=== PATIENT | male | born 1975 | race Hispanic/Latino ===

== ENCOUNTER 2020-10-19 08:47 | Inpatient (IN) | payer MEDICAID, OTHER ==
[~2020-10-19] VITALS: Ht 167.6 cm; Wt 120.0 kg
[2020-10-19] VITALS (7 sets, daily range): BP systolic 137–190; BP diastolic 73–98
[2020-10-19 09:33] LABS: BASOPHILS % (AUTO) 0.6 % (0.0-5.0); EOSINOPHILS % (AUTO) 2.1 % (0.0-8.0); HEMATOCRIT 45.7 % (42-54); LYMPHOCYTES % (AUTO) 19.4 % (21.0-51.0); MEAN CORPUSCULAR HEMOGLOBIN 28.8 pg (27.0-33.0); MEAN CORPUSCULAR HGB CONC 35.4 g/dL (32.0-36.0); MEAN CORPUSCULAR VOLUME 81.2 fL (79-99); NEUTROPHILS % (AUTO) 71.6 % (40.0-77.0); PLATELET COUNT (AUTO) 199 K/uL (130-400); RED BLOOD CELL COUNT(AUTO) 5.63 MIL/uL (4.50-6.20); RED CELL DISTRIBUTION WIDTH 13.3 % (11.0-15.5); WHITE BLOOD COUNT (AUTO) 12.3 K/uL (4.8-10.8)
[2020-10-19 09:43] LABS: INR 0.99 (0.85-1.15); PROTHROMBIN TIME 10.8 SEC (9.6-11.6)
[2020-10-19 09:47] LABS: ALBUMIN 2.9 g/dL (3.5-5.0); BILIRUBIN,TOTAL 1.4 mg/dL (0.2-1.0); CREATININE 0.9 mg/dL (0.5-1.5); TOTAL PROTEIN, SERUM 6.9 g/dL (6.0-8.3)
[2020-10-19 09:48] LABS: B-TYPE NATRIURETIC PEPTIDE 118 pg/mL (0-100)
[2020-10-19 11:44] LABS: APPEARANCE,URINE Clear (CLEAR); BILIRUBIN,URINE Negative (NEGATIVE); COLOR,URINE Yellow (YELLOW); GLUCOSE, URINE (UA) >=1000 mg/dL (NEGATIVE); KETONES,URINE Negative (NEGATIVE); LEUKOCYTE ESTERASE ,URINE Negative (NEGATIVE); NITRATE,URINE Negative (NEGATIVE); OCCULT BLOOD,URINE Negative (NEGATIVE); PROTEIN,URINE >=1000 mg/dL (NEGATIVE)
[2020-10-19] MEDS ORDERED: SOLU-MEDROL 125MG VIAL IVP SCH (12:00)
[2020-10-19] MEDS ORDERED: INSULIN HUMULIN R 100 UNIT/ML 3ML IV SCH (12:00)
[2020-10-19] MEDS ORDERED: 0.9%NACL 1000ML 1,000 ML IV SCH (12:00)
[2020-10-19 12:02] LABS: BACTERIA,URINE Rare /HPF (None Seen); RBC,URINE 0-1 /HPF (0-1); SQUAMOUS EPITHELIAL CELL,UR Rare /HPF (0-2)
[2020-10-19] MEDS ORDERED: ACETAMINOPHEN 325 MG TAB PO PRN (13:00)
[2020-10-19] MEDS ORDERED: LACTULOSE 20 GM/30 ML UDCUP PO PRN (13:00)
[2020-10-19] MEDS: 0.9%NACL 1000ML 1,000 ML IV SCH ×2 (13:40→17:33)
[2020-10-19 13:42] LABS: HDL CHOLESTEROL 45 mg/dL (29-71); LDL DIRECT 59 mg/dL (0-99); TRIGLYCERIDES 97 mg/dL (30-200)
[2020-10-19 13:53] LABS: CHOLESTEROL 112 mg/dL (<200)
[2020-10-19 14:12] LABS: HEMOGLOBIN A1C 9.9 % (4.0-6.0)
[2020-10-19] MEDS ORDERED: INSULIN HUMULIN R 100 UNIT/ML 3ML SQ SCH (16:30)
[2020-10-19] MEDS: INSULIN HUMULIN R 100 UNIT/ML 3ML SQ SCH (17:00)
[2020-10-19] MEDS ORDERED: INSULIN GLARGINE 100 UNITS/ML 10 ML VIAL SQ SCH (21:00)
[2020-10-19] MEDS: FAMOTIDINE 20MG TAB PO SCH (22:07)
[2020-10-20] VITALS (9 sets, daily range): BP systolic 147–178; BP diastolic 65–98
[2020-10-20] MEDS ORDERED: INSULIN HUMULIN R 100 UNIT/ML 3ML SQ ONE (02:30)
[2020-10-20] MEDS ORDERED: LABETALOL 20MG SYG IV ONE (06:05)
[2020-10-20] MEDS ORDERED: LABETALOL 20MG SYG IV SCH (06:35)
[2020-10-20] MEDS: INSULIN HUMULIN R 100 UNIT/ML 3ML SQ SCH ×6 (08:45→21:01)
[2020-10-20] MEDS: ASPIRIN 81 MG EC TAB PO SCH (08:46)
[2020-10-20] MEDS: LISINOPRIL 10 MG TABLET PO SCH (08:46)
[2020-10-20] MEDS: 0.9%NACL 1000ML 1,000 ML IV SCH (08:46)
[2020-10-20] MEDS ORDERED: LISI40TA9 PO (09:45)
[2020-10-20] MEDS ORDERED: CARV6.25 PO (09:45)
[2020-10-20] MEDS ORDERED: ATOR40TA69 PO (09:45)
[2020-10-20] MEDS ORDERED: FURO20TA6 PO (09:45)
[2020-10-20] MEDS ORDERED: AMLO10TA4 PO (09:45)
[2020-10-20] MEDS ORDERED: HYDR-4154 PO (09:45)
[2020-10-20] MEDS ORDERED: METF-446 PO (09:45)
[2020-10-20] MEDS ORDERED: CLON0.2T PO (09:45)
[2020-10-20] MEDS: FAMOTIDINE 20MG TAB PO SCH ×2 (10:52→21:03)
[2020-10-20] MEDS ORDERED: GADOTERATE MEGLUMINE 10 MMOL/20 ML VIAL IV ONE (10:54)
[2020-10-20] MEDS ORDERED: LABETALOL 20MG SYG IV PRN (15:00)
[2020-10-20] MEDS ORDERED: CLONIDINE HCL 0.2 MG TABLET PO ONE (15:00)
[2020-10-20] MEDS ORDERED: INSULIN HUMULIN R 100 UNIT/ML 3ML SQ SCH (17:00)
[2020-10-20] MEDS ORDERED: INSU10VI3 SQ (17:01)
[2020-10-20] MEDS: HYDRALAZINE 25MG TABLET PO SCH (20:59)
[2020-10-20] MEDS: AMLODIPINE 5 MG TAB PO SCH (21:00)
[2020-10-20] MEDS: CLONIDINE HCL 0.2 MG TABLET PO SCH (21:00)
[2020-10-20] MEDS: CARVEDILOL 6.25 MG TABLET PO SCH (21:00)
[2020-10-20] MEDS: FUROSEMIDE 20 MG TABLET PO SCH (21:00)
[2020-10-20] MEDS: VALACYCLOVIR HCL 500 MG TABLET PO SCH (21:00)
[2020-10-20] MEDS: INSULIN GLARGINE 100 UNITS/ML 10 ML VIAL SQ SCH (21:01)
[2020-10-21 03:55] VITALS: BP 125/67
[2020-10-21] MEDS: INSULIN HUMULIN R 100 UNIT/ML 3ML SQ SCH ×7 (06:22→20:40)
[2020-10-21 07:30] VITALS: BP 159/93
[2020-10-21] MEDS: LISINOPRIL 40 MG TABLET PO SCH (09:23)
[2020-10-21] MEDS: PREDNISONE 20 MG TABLET PO SCH (09:23)
[2020-10-21] MEDS: LISINOPRIL 10 MG TABLET PO SCH (09:23)
[2020-10-21] MEDS: ASPIRIN 81 MG EC TAB PO SCH (09:27)
[2020-10-21] MEDS: FAMOTIDINE 20MG TAB PO SCH ×2 (09:27→20:29)
[2020-10-21] MEDS: HYDRALAZINE 25MG TABLET PO SCH ×3 (09:28→20:30)
[2020-10-21] MEDS: ATORVASTATIN 40 MG TABLET PO SCH (09:29)
[2020-10-21] MEDS: CARVEDILOL 6.25 MG TABLET PO SCH ×2 (09:29→20:30)
[2020-10-21] MEDS: CLONIDINE HCL 0.2 MG TABLET PO SCH ×2 (09:30→20:30)
[2020-10-21] MEDS: FUROSEMIDE 20 MG TABLET PO SCH ×2 (09:30→20:29)
[2020-10-21] MEDS: VALACYCLOVIR HCL 500 MG TABLET PO SCH ×3 (09:31→20:32)
[2020-10-21 11:00] VITALS: BP 166/96
[2020-10-21 16:00] VITALS: BP 172/96
[2020-10-21 20:00] VITALS: BP 181/90
[2020-10-21] MEDS: AMLODIPINE 5 MG TAB PO SCH (20:29)
[2020-10-21] MEDS: INSULIN GLARGINE 100 UNITS/ML 10 ML VIAL SQ SCH (20:41)
[2020-10-21 22:00] VITALS: BP 163/85
[2020-10-22 01:04] VITALS: BP 153/79
[2020-10-22 04:16] VITALS: BP 160/69
[2020-10-22] MEDS: INSULIN HUMULIN R 100 UNIT/ML 3ML SQ SCH ×4 (06:33→12:06)
[2020-10-22 06:38] LABS: BASOPHILS % (AUTO) 0.5 % (0.0-5.0); EOSINOPHILS % (AUTO) 0.4 % (0.0-8.0); HEMATOCRIT 41.7 % (42-54); LYMPHOCYTES % (AUTO) 20.2 % (21.0-51.0); MEAN CORPUSCULAR HGB CONC 35.5 g/dL (32.0-36.0); MEAN CORPUSCULAR VOLUME 81.6 fL (79-99); MONOCYTES % (AUTO) 6.3 % (3.0-13.0); PLATELET COUNT (AUTO) 205 K/uL (130-400); RED BLOOD CELL COUNT(AUTO) 5.11 MIL/uL (4.50-6.20); RED CELL DISTRIBUTION WIDTH 13.3 % (11.0-15.5); WHITE BLOOD COUNT (AUTO) 19.1 K/uL (4.8-10.8)
[2020-10-22 07:00] LABS: POTASSIUM 3.2 mmol/L (3.5-5.1)
[2020-10-22] MEDS: PREDNISONE 20 MG TABLET PO SCH (08:40)
[2020-10-22] MEDS: VALACYCLOVIR HCL 500 MG TABLET PO SCH ×2 (08:40→15:03)
[2020-10-22] MEDS: HYDRALAZINE 25MG TABLET PO SCH (08:40)
[2020-10-22] MEDS: ATORVASTATIN 40 MG TABLET PO SCH (08:41)
[2020-10-22] MEDS: CARVEDILOL 6.25 MG TABLET PO SCH (08:41)
[2020-10-22] MEDS: ASPIRIN 81 MG EC TAB PO SCH (08:41)
[2020-10-22] MEDS: FUROSEMIDE 20 MG TABLET PO SCH (08:41)
[2020-10-22] MEDS: LISINOPRIL 40 MG TABLET PO SCH (08:41)
[2020-10-22] MEDS: FAMOTIDINE 20MG TAB PO SCH (08:41)
[2020-10-22] MEDS: CLONIDINE HCL 0.2 MG TABLET PO SCH (08:42)
[2020-10-22] MEDS ORDERED: INSULIN GLARGINE 100 UNITS/ML 10 ML VIAL SQ SCH (09:00)
[2020-10-22 10:05] VITALS: BP 167/104
[2020-10-22 11:30] VITALS: BP 189/94
[2020-10-22] MEDS ORDERED: KCL 20 MEQ ERTAB PO ONE ×2 (11:49→12:00)
[2020-10-22] MEDS ORDERED: POTASSIUM CHLORIDE 20MEQ/100ML 100 ML IV PRN (12:00)
[2020-10-22] MEDS ORDERED: LIDOCAINE HCL-MPF 1% 2ML VIAL IV PRN (12:00)
[2020-10-22] MEDS ORDERED: KCL 20 MEQ ERTAB PO PRN (12:00)
[2020-10-22] MEDS ORDERED: HYDRALAZINE 25MG TABLET PO SCH (13:00)
== END 2020-10-22 15:45 | disposition left against medical advice (07) | DRG 74 ==
LOC: EDH 08:47 → OBSVTOIN 08:48 → EDHIP 08:48 → 3CH 10-20 22:24
PROVIDERS: ADMIT Internal Medicine; ATTEND Internal Medicine
DX: G51.0 Bell's palsy (principal); Z68.41 Body mass index [BMI] 40.0-44.9, adult; I16.0 Hypertensive urgency; E78.5 Hyperlipidemia, unspecified; E11.65 Type 2 diabetes mellitus with hyperglycemia; E66.01 Morbid (severe) obesity due to excess calories; I11.0 Hypertensive heart disease with heart failure; I50.9 Heart failure, unspecified; I15.9 Secondary hypertension, unspecified; E78.00 Pure hypercholesterolemia, unspecified; Z79.84 Long term (current) use of oral hypoglycemic drugs; Z83.3 Family history of diabetes mellitus; Z83.79 Family history of other diseases of the digestive system; Z82.49 Family history of ischemic heart disease and other diseases of the circulatory system
CPT/HCPCS: 36415; 70450; 70553; 71045; 76770; 80048; 80053; 80061; 81001; 82088; 82948; 83036; 83880; 84244; 84484; 85025; 85610; 86341; 92610; 93005; 93880; 93975; G0378; J1815; J2930; J7030

== ENCOUNTER → 2021-01-09 | Outpatient (CLI) | payer MEDICAID ==
[~2021-01-09] MED LIST: AMLO10TA4 PO; ATOR40TA69 PO; CARV6.25 PO; CLON0.2T PO; FURO20TA6 PO; HYDR-4154 PO; INSU10VI3 SQ; LISI40TA9 PO; METF-446 PO
[2021-01-09 10:31] LABS: INR 1.03 (0.85-1.15); PROTHROMBIN TIME 11.2 SEC (9.6-11.6)
[2021-01-09 10:32] LABS: PARTIAL THROMBOPLASTIN TIME 28.9 SEC (26.3-35.5)
== END | disposition home or self-care (01) ==
LOC: LAB 09:00
PROVIDERS: ATTEND Internal Medicine
DX: E04.2 Nontoxic multinodular goiter (principal)
CPT/HCPCS: 36415; 85610; 85730

== ENCOUNTER → 2021-01-16 | Outpatient (CLI) | payer MEDICAID ==
[2021-01-16 08:49] LABS: INR 1.04 (0.85-1.15); PROTHROMBIN TIME 11.3 SEC (9.6-11.6)
[2021-01-16 08:50] LABS: PARTIAL THROMBOPLASTIN TIME 30.6 SEC (26.3-35.5)
== END | disposition home or self-care (01) ==
LOC: RAH 07:34
PROVIDERS: ATTEND Internal Medicine
DX: E04.1 Nontoxic single thyroid nodule (principal); Z79.01 Long term (current) use of anticoagulants
CPT/HCPCS: 10005; 36415; 60100; 85610; 85730; 88173; 88305

== ENCOUNTER → 2022-04-05 | Outpatient (CLI) | payer MEDICAID ==
[2022-04-05 11:37] LABS: CREATININE 1.4 mg/dL (0.5-1.5); POTASSIUM 4.1 mmol/L (3.5-5.1)
== END | disposition home or self-care (01) ==
LOC: LAB 10:04
PROVIDERS: ATTEND Internal Medicine Cardiovascular Disease
DX: I87.2 Venous insufficiency (chronic) (peripheral) (principal)
CPT/HCPCS: 36415; 80048; 83880

== ENCOUNTER 2022-11-15 14:47 | Inpatient (IN) | payer MEDICAID, OTHER ==
[~2022-11-15] VITALS: Ht 170.2 cm; Wt 119.8 kg
[~2022-11-15 14:47] MED LIST changes: +ETOMIDATE 20MG VIAL IVP ONE; +ROCURONIUM BROMIDE 10MG/1ML 5ML VL IV ONE
[2022-11-15] MEDS ORDERED: IPRATROPIUM/ALBUTEROL SULFATE 3 ML SOLUTION IH ONE (16:00)
[2022-11-15 16:26] LABS: BASOPHILS # (AUTO) 0.09 K/uL (0.00-0.20); BASOPHILS % (AUTO) 0.7 % (0.0-5.0); EOSINOPHILS # (AUTO) 0.45 K/uL (0.00-0.70); EOSINOPHILS % (AUTO) 3.6 % (0.0-8.0); HEMATOCRIT 36.2 % (42-54); IMMATURE GRANULOCYTE ABSOLUTE 0.05 K/uL (0-1); LYMPHOCYTES # (AUTO) 1.8 K/uL (1.0-4.8); LYMPHOCYTES % (AUTO) 14.6 % (21.0-51.0); MEAN CORPUSCULAR HEMOGLOBIN 27.7 pg (27.0-33.0); MEAN CORPUSCULAR HGB CONC 33.1 g/dL (32.0-36.0); MEAN CORPUSCULAR VOLUME 83.6 fL (79-99); MONOCYTES # (AUTO) 0.7 K/uL (0.1-1.0); MONOCYTES % (AUTO) 5.7 % (3.0-13.0); NEUTROPHILS # (AUTO) 9.4 K/uL (1.8-7.7); PLATELET COUNT (AUTO) 209 K/uL (130-400); RED BLOOD CELL COUNT(AUTO) 4.33 MIL/uL (4.50-6.20); RED CELL DISTRIBUTION WIDTH 14.6 % (11.0-15.5); WHITE BLOOD COUNT (AUTO) 12.6 K/uL (4.8-10.8)
[2022-11-15 16:42] LABS: CREATININE 1.7 mg/dL (0.5-1.5); POTASSIUM 3.3 mmol/L (3.5-5.1)
[2022-11-15 16:54] VITALS: PULSE 72; RESP 22
[2022-11-15 16:55] LABS: ALBUMIN 2.2 g/dL (3.5-5.0); BILIRUBIN,TOTAL 1.5 mg/dL (0.2-1.0); TOTAL PROTEIN, SERUM 6.2 g/dL (6.0-8.3)
[2022-11-15] MEDS ORDERED: NITROGLYCERIN 0.4 MG SL TAB SL STA (17:07)
[2022-11-15 17:18] LABS: B-TYPE NATRIURETIC PEPTIDE 377 pg/mL (0-100)
[2022-11-15] MEDS ORDERED: FUROSEMIDE 40MG VIAL IV ONE (17:30)
[2022-11-15 17:33] LABS: SARS-CoV-2, RNA, NAAT NEGATIVE SARS CoV-2 (NEGATIVE)
[2022-11-15 17:42] LABS: INFLUENZA TYPE A Negative For Type A (NEGATIVE)
[2022-11-15 17:45] LABS: INFLUENZA TYPE B Positive For Type B (NEGATIVE)
[2022-11-15] MEDS ORDERED: POTASSIUM BICARB/CIT AC 25 MEQ TABLET.EFF ONE (17:54)
[2022-11-15] MEDS ORDERED: POTASSIUM BICARB/CIT AC 25 MEQ TABLET.EFF PO ONE (18:00)
[2022-11-15] MEDS ORDERED: ONDANSETRON 4MG INJ IV PRN (18:30)
[2022-11-15] MEDS ORDERED: MORPHINE 2 MG SYG IV PRN (18:30)
[2022-11-15] MEDS ORDERED: ASPIRIN 81MG CHEW TAB PO ONE (18:30)
[2022-11-15] MEDS ORDERED: GUAIFENESIN-DM 200/20 MG 10 ML PO PRN (18:30)
[2022-11-15] MEDS ORDERED: CEFTRIAXONE 1G VIAL 1 GM in 0.9%NACL 50ML 50 ML IV SCH (18:30)
[2022-11-15] MEDS ORDERED: MORPHINE 4 MG SYG IV PRN (18:30)
[2022-11-15] MEDS ORDERED: ACETAMINOPHEN 325 MG TAB PO PRN (18:30)
[2022-11-15 18:49] LABS: ADD UA MICROSCOPIC YES; APPEARANCE,URINE CLEAR (CLEAR); BILIRUBIN,URINE NEGATIVE (NEGATIVE); COLOR,URINE LIGHT-YELLOW (YELLOW); GLUCOSE, URINE (UA) TRACE mg/dL (NEGATIVE); KETONES,URINE NEGATIVE (NEGATIVE); LEUKOCYTE ESTERASE ,URINE NEGATIVE Leu/uL (NEGATIVE); NITRATE,URINE NEGATIVE (NEGATIVE); PH,URINE 6.5 (5.0-8.0); PROTEIN,URINE 300 mg/dL (NEGATIVE); UROBILINOGEN,URINE 0.2 mg/dL (0.2-1.0)
[2022-11-15 18:51] LABS: BACTERIA,URINE RARE /HPF (None Seen); MUCUS,URINE RARE LPF (None Seen); SQUAMOUS EPITHELIAL CELL,UR RARE /HPF (0-2)
[2022-11-15] MEDS: DOXYCYCLINE 100MG+NS 250ML 250 ML IV SCH (18:59)
[2022-11-15] MEDS: NITROGLYCERIN 1GM OINT 1 INCH/1GM TD SCH (18:59)
[2022-11-15] MEDS ORDERED: CEFTRIAXONE 1G VIAL IVPB SCH (19:00)
[2022-11-15 20:15] VITALS: PULSE 96; RESP 21; O2SAT 97
[2022-11-15] MEDS: INSULIN HUMULIN R 100 UNIT/ML 3ML SQ SCH (20:20)
[2022-11-15] MEDS: OSELTAMIVIR PHOSPHATE 75 MG CAP PO SCH (20:24)
[2022-11-15] MEDS: FAMOTIDINE 20MG TAB PO SCH (20:24)
[2022-11-15] MEDS: HYDRALAZINE 20MG/ML VIAL IV PRN (20:25)
[2022-11-15] MEDS: KCL 20 MEQ ERTAB PO PRN (20:32)
[2022-11-15 21:48] VITALS: BP 153/84; PULSE 93; RESP 18
[2022-11-15 22:00] VITALS: O2SAT 96
[2022-11-15] MEDS ORDERED: ZOLPIDEM TARTRATE 5 MG TAB PO ONE (23:00)
[2022-11-15] MEDS: ALBUTEROL 0.083% 2.5 MG/3 ML INH IH SCH (23:43)
[2022-11-15 23:46] VITALS: PULSE 92; PULSE 95; RESP 21; RESP 22; O2SAT 98
[2022-11-16] VITALS (18 sets, daily range): BP systolic 105–164; BP diastolic 51–104; PULSE 6–93; RESP 18–21; O2SAT 97–100
[2022-11-16 01:00] LABS: ABG BASE EXCESS 5.4 mmol/L (-2.0-3.0); ABG HCO3 28.7 mmol/L (21.0-28.0); ABG PCO2 38 mmHg (35-48); ABG PH 7.501 (7.35-7.450); DEVICE COMMENT LR RN; PO2, ARTERIAL BG 63.3 mmHg (83.0-108.0); VENT MODE, BG RA (ROOM AIR)
[2022-11-16] MEDS: KCL 20 MEQ ERTAB PO PRN ×3 (01:01→10:13)
[2022-11-16] MEDS: NITROGLYCERIN 1GM OINT 1 INCH/1GM TD SCH (02:29)
[2022-11-16] MEDS: DOXYCYCLINE 100MG+NS 250ML 250 ML IV SCH ×2 (04:16→18:02)
[2022-11-16 04:47] LABS: BASOPHILS # (AUTO) 0.12 K/uL (0.00-0.20); BASOPHILS % (AUTO) 0.9 % (0.0-5.0); EOSINOPHILS # (AUTO) 0.57 K/uL (0.00-0.70); EOSINOPHILS % (AUTO) 4.1 % (0.0-8.0); HEMATOCRIT 33.3 % (42-54); IMMATURE GRANULOCYTE ABSOLUTE 0.07 K/uL (0-1); LYMPHOCYTES # (AUTO) 2.7 K/uL (1.0-4.8); LYMPHOCYTES % (AUTO) 19.7 % (21.0-51.0); MEAN CORPUSCULAR HEMOGLOBIN 27.9 pg (27.0-33.0); MEAN CORPUSCULAR VOLUME 84.5 fL (79-99); MONOCYTES # (AUTO) 1.1 K/uL (0.1-1.0); MONOCYTES % (AUTO) 7.7 % (3.0-13.0); NEUTROPHILS # (AUTO) 9.3 K/uL (1.8-7.7); NEUTROPHILS % (AUTO) 67.1 % (40.0-77.0); PLATELET COUNT (AUTO) 190 K/uL (130-400); RED BLOOD CELL COUNT(AUTO) 3.94 MIL/uL (4.50-6.20); RED CELL DISTRIBUTION WIDTH 14.6 % (11.0-15.5); WHITE BLOOD COUNT (AUTO) 13.8 K/uL (4.8-10.8)
[2022-11-16 05:06] LABS: MAGNESIUM 1.5 mg/dL (1.80-2.40); PHOSPHORUS 4.6 mg/dL (2.5-4.9); THYROID STIMULATING HORMONE 17.55 uIU/mL (0.36-3.74)
[2022-11-16 05:14] LABS: CREATININE 1.5 mg/dL (0.5-1.5)
[2022-11-16 05:21] LABS: POTASSIUM 2.8 mmol/L (3.5-5.1)
[2022-11-16] MEDS: POTASSIUM CHLORIDE 20MEQ/100ML 100 ML IV PRN ×2 (05:29→10:17)
[2022-11-16] MEDS ORDERED: SODIUM CHLORIDE 3% FOR INHALATION 4 ML/AMP VIAL.NEB IH ONE ×2 (06:14→11:02)
[2022-11-16] MEDS: INSULIN HUMULIN R 100 UNIT/ML 3ML SQ SCH ×4 (07:24→21:01)
[2022-11-16] MEDS: ALBUTEROL 0.083% 2.5 MG/3 ML INH IH SCH ×4 (07:26→23:21)
[2022-11-16] MEDS: BUDESONIDE 0.5 MG/2 ML INH IH SCH ×2 (07:26→18:52)
[2022-11-16] MEDS: POTASSIUM CHLORIDE 10% ELIXIR 20 MEQ/15 ML UDCUP PO PRN ×4 (07:30→21:08)
[2022-11-16] MEDS: MAGNESIUM 2GM PREMIX 50ML 50 ML IV PRN ×2 (07:30→17:02)
[2022-11-16] MEDS ORDERED: ENOXAPARIN SODIUM 40 MG/0.4 ML SYRINGE SQ SCH (09:00)
[2022-11-16] MEDS ORDERED: LISINOPRIL 10 MG TABLET PO SCH (09:00)
[2022-11-16] MEDS ORDERED: IPRATROPIUM 0.5 MG/2.5 ML INH IH SCH (10:00)
[2022-11-16] MEDS: OSELTAMIVIR PHOSPHATE 75 MG CAP PO SCH ×2 (10:12→20:56)
[2022-11-16] MEDS: FAMOTIDINE 20MG TAB PO SCH ×2 (10:12→20:57)
[2022-11-16] MEDS: HYDRALAZINE 25MG TABLET PO SCH ×2 (10:13→17:01)
[2022-11-16] MEDS: ASPIRIN 81MG CHEW TAB PO SCH (10:13)
[2022-11-16] MEDS: CARVEDILOL 25 MG TABLET PO SCH ×2 (10:18→20:57)
[2022-11-16] MEDS ORDERED: CARV25TA PO (10:33)
[2022-11-16 10:34] LABS: INR 1.01 (0.85-1.15); PROTHROMBIN TIME 11.7 SEC (9.6-11.6)
[2022-11-16 10:35] LABS: PARTIAL THROMBOPLASTIN TIME 34.7 SEC (26.3-35.5)
[2022-11-16] MEDS ORDERED: ISOS1POW MC (10:35)
[2022-11-16] MEDS ORDERED: ATOR40TA71 PO ×2 (10:39)
[2022-11-16] MEDS ORDERED: FURO40SO4 PO (10:40)
[2022-11-16] MEDS ORDERED: METF-446 PO (10:41)
[2022-11-16] MEDS ORDERED: AMLO-258 PO (10:42)
[2022-11-16] MEDS ORDERED: LEVO200C2 PO (10:43)
[2022-11-16] MEDS ORDERED: HYDR-4154 PO (10:44)
[2022-11-16] MEDS ORDERED: LEVO50CA4 PO (10:45)
[2022-11-16] MEDS ORDERED: BUME1TAB6 PO (10:46)
[2022-11-16] MEDS ORDERED: LISI40TA9 PO (10:48)
[2022-11-16] MEDS ORDERED: INSU500I SQ (10:50)
[2022-11-16] MEDS ORDERED: SEMA2PEN SQ (10:53)
[2022-11-16] MEDS ORDERED: LACT10SO76 PO (10:59)
[2022-11-16] MEDS: IPRATROPIUM 0.5 MG/2.5 ML INH IH SCH ×3 (11:56→23:21)
[2022-11-16] MEDS: CEFTRIAXONE 2GM VIAL IVPB SCH (12:05)
[2022-11-16] MEDS: LISINOPRIL 20 MG TABLET PO SCH ×2 (12:06→20:56)
[2022-11-16 15:10] LABS: MAGNESIUM 1.9 mg/dL (1.80-2.40); POTASSIUM 3.8 mmol/L (3.5-5.1)
[2022-11-16] MEDS: ALPRAZOLAM 0.5 MG TABLET PO PRN (17:00)
[2022-11-16] MEDS ORDERED: LACTULOSE 10 GM PO PRN (18:30)
[2022-11-16] MEDS: ATORVASTATIN 40 MG TABLET PO SCH (20:56)
[2022-11-16] MEDS: BUMETANIDE 1MG/4ML VIAL IVP SCH (20:56)
[2022-11-16] MEDS ORDERED: INSULIN GLARGINE 100 UNITS/ML 10 ML VIAL SQ SCH (21:00)
[2022-11-17] VITALS (40 sets, daily range): BP systolic 105–241; BP diastolic 67–145; PULSE 80–113; RESP 15–27; O2SAT 95–100
[2022-11-17] MEDS: HYDRALAZINE 25MG TABLET PO SCH ×3 (00:01→17:14)
[2022-11-17 05:10] LABS: BASOPHILS % (AUTO) 0.7 % (0.0-5.0); EOSINOPHILS % (AUTO) 2.8 % (0.0-8.0); HEMATOCRIT 35.1 % (42-54); IMMATURE GRANULOCYTE ABSOLUTE 0.08 K/uL (0-1); LYMPHOCYTES # (AUTO) 2.2 K/uL (1.0-4.8); LYMPHOCYTES % (AUTO) 15.7 % (21.0-51.0); MEAN CORPUSCULAR HEMOGLOBIN 27.6 pg (27.0-33.0); MEAN CORPUSCULAR HGB CONC 32.2 g/dL (32.0-36.0); MEAN CORPUSCULAR VOLUME 85.6 fL (79-99); MONOCYTES # (AUTO) 1.1 K/uL (0.1-1.0); MONOCYTES % (AUTO) 7.6 % (3.0-13.0); NEUTROPHILS # (AUTO) 10.4 K/uL (1.8-7.7); NEUTROPHILS % (AUTO) 72.6 % (40.0-77.0); PLATELET COUNT (AUTO) 212 K/uL (130-400); RED CELL DISTRIBUTION WIDTH 14.9 % (11.0-15.5); WHITE BLOOD COUNT (AUTO) 14.3 K/uL (4.8-10.8)
[2022-11-17 05:36] LABS: ALBUMIN 2.2 g/dL (3.5-5.0); CREATININE 1.7 mg/dL (0.5-1.5); POTASSIUM 3.8 mmol/L (3.5-5.1); TOTAL PROTEIN, SERUM 6.1 g/dL (6.0-8.3)
[2022-11-17] MEDS: INSULIN HUMULIN R 100 UNIT/ML 3ML SQ SCH ×6 (05:45→16:15)
[2022-11-17] MEDS: DOXYCYCLINE 100MG+NS 250ML 250 ML IV SCH ×2 (06:05→18:50)
[2022-11-17] MEDS: LEVOTHYROXINE 50 MCG TABLET PO SCH (06:06)
[2022-11-17] MEDS: LEVOTHYROXINE 100 MCG TABLET PO SCH (06:06)
[2022-11-17] MEDS: POTASSIUM CHLORIDE 10% ELIXIR 20 MEQ/15 ML UDCUP PO PRN ×2 (06:07→08:26)
[2022-11-17] MEDS: IPRATROPIUM 0.5 MG/2.5 ML INH IH SCH ×4 (06:13→23:12)
[2022-11-17] MEDS: ALBUTEROL 0.083% 2.5 MG/3 ML INH IH SCH ×4 (06:13→23:12)
[2022-11-17] MEDS: BUDESONIDE 0.5 MG/2 ML INH IH SCH ×2 (06:14→18:13)
[2022-11-17] MEDS: BUMETANIDE 1MG/4ML VIAL IVP SCH (08:25)
[2022-11-17] MEDS: CARVEDILOL 25 MG TABLET PO SCH ×2 (08:25→20:54)
[2022-11-17] MEDS: ASPIRIN 81MG CHEW TAB PO SCH (08:26)
[2022-11-17] MEDS: FAMOTIDINE 20MG TAB PO SCH ×2 (08:26→20:53)
[2022-11-17] MEDS: OSELTAMIVIR PHOSPHATE 75 MG CAP PO SCH ×2 (08:26→20:53)
[2022-11-17] MEDS: HEPARIN 5,000 UNIT VIAL SQ SCH ×3 (08:35→23:57)
[2022-11-17] MEDS: INSULIN GLARGINE 100 UNITS/ML 10 ML VIAL SQ SCH (08:36)
[2022-11-17] MEDS ORDERED: ATORVASTATIN 40 MG TABLET PO SCH (09:00)
[2022-11-17] MEDS ORDERED: NON-FORMULARY MEDICATION 1 EACH (Levothyroxine Sodium (Levothyroxine) 50 MCG) PO SCH (09:00)
[2022-11-17] MEDS ORDERED: NON-FORMULARY MEDICATION 1 EACH (Levothyroxine Sodium (Levothyroxine) 200 MCG) PO SCH (09:00)
[2022-11-17] MEDS ORDERED: BUMETANIDE 1 MG TAB PO SCH (09:00)
[2022-11-17] MEDS: CEFTRIAXONE 2GM VIAL IVPB SCH (11:54)
[2022-11-17] MEDS ORDERED: MORPHINE 2 MG SYG IV STA (12:51)
[2022-11-17] MEDS ORDERED: DEXMEDETOMIDINE 400MCG/NS100ML IV STA (12:51)
[2022-11-17] MEDS ORDERED: SOLU-MEDROL 125MG VIAL IVP ONE (13:00)
[2022-11-17] MEDS ORDERED: NOREPINEPHRIN 4MG/NS 250ML 250 ML IV ONE (13:16)
[2022-11-17] MEDS ORDERED: NOREPINEPHRIN 4MG/NS 250ML 250 ML IV SCH (13:30)
[2022-11-17] MEDS ORDERED: MIDAZOLAM HCL 50 MG in 0.9%NACL 50ML 50 ML IV SCH (13:30)
[2022-11-17] MEDS: MIDAZOLAM 50MG-0.9% NS 50ML 50 ML IV SCH ×2 (13:44→17:13)
[2022-11-17 13:45] LABS: MEAN CORPUSCULAR HEMOGLOBIN 27.8 pg (27.0-33.0); MEAN CORPUSCULAR HGB CONC 31.6 g/dL (32.0-36.0); PLATELET COUNT (AUTO) 223 K/uL (130-400); RED BLOOD CELL COUNT(AUTO) 4.32 MIL/uL (4.50-6.20); RED CELL DISTRIBUTION WIDTH 15.1 % (11.0-15.5); WHITE BLOOD COUNT (AUTO) 21.1 K/uL (4.8-10.8)
[2022-11-17 13:57] LABS: ABG BASE EXCESS -1.6 mmol/L (-2.0-3.0); ABG HCO3 24.7 mmol/L (21.0-28.0); ABG OXYGEN SATURATION 95.1 % (95.0-99.0); ABG PCO2 48 mmHg (35-48); CARBON MONOXIDE 1.2; HHb 4.8; PO2, ARTERIAL BG 79.5 mmHg (83.0-108.0); VENT MODE, BG AC-VC (ROOM AIR)
[2022-11-17 14:07] LABS: ALBUMIN 2.4 g/dL (3.5-5.0); BILIRUBIN,TOTAL 1.4 mg/dL (0.2-1.0); CREATININE 1.6 mg/dL (0.5-1.5); MAGNESIUM 1.8 mg/dL (1.80-2.40); POTASSIUM 4.1 mmol/L (3.5-5.1); TOTAL PROTEIN, SERUM 6.9 g/dL (6.0-8.3)
[2022-11-17] MEDS: FENTANYL 2500MCG+NS 250ML 250 ML IV SCH ×2 (14:19→23:54)
[2022-11-17] MEDS: SOLU-MEDROL 40MG VIAL IVP SCH ×2 (14:29→20:54)
[2022-11-17 14:45] LABS: BASOPHILS # (AUTO) 0.16 K/uL (0.00-0.20); BASOPHILS % (AUTO) 0.8 % (0.0-5.0); EOSINOPHILS # (AUTO) 0.26 K/uL (0.00-0.70); EOSINOPHILS % (AUTO) 1.2 % (0.0-8.0); IMMATURE GRANULOCYTE ABSOLUTE 0.13 K/uL (0-1); LYMPHOCYTES # (AUTO) 1.9 K/uL (1.0-4.8); LYMPHOCYTES % (AUTO) 8.9 % (21.0-51.0); MONOCYTES # (AUTO) 1.1 K/uL (0.1-1.0); MONOCYTES % (AUTO) 5.3 % (3.0-13.0); NEUTROPHILS # (AUTO) 17.6 K/uL (1.8-7.7); NEUTROPHILS % (AUTO) 83.2 % (40.0-77.0)
[2022-11-17] MEDS ORDERED: COMPOUND NARC IV MISC 1 EACH IVSOLN MISC PRN (15:00)
[2022-11-17] MEDS: MAGNESIUM 2GM PREMIX 50ML 50 ML IV PRN (15:13)
[2022-11-17] MEDS: ATORVASTATIN 40 MG TABLET PO SCH (20:53)
[2022-11-17] MEDS ORDERED: FUROSEMIDE 100MG VIAL ONE (23:48)
[2022-11-17] MEDS: FUROSEMIDE 100MG VIAL 100 MG in 0.9%NACL 100ML 100 ML IV SCH (23:56)
[2022-11-18] VITALS (87 sets, daily range): BP systolic 67–175; BP diastolic 23–107; PULSE 71–90; RESP 9–38; O2SAT 90–99
[2022-11-18] MEDS: HYDRALAZINE 25MG TABLET PO SCH ×4 (02:52→18:53)
[2022-11-18] MEDS: MIDAZOLAM 50MG-0.9% NS 50ML 50 ML IV SCH ×4 (02:56→20:30)
[2022-11-18 03:58] LABS: BASOPHILS # (AUTO) 0.03 K/uL (0.00-0.20); BASOPHILS % (AUTO) 0.2 % (0.0-5.0); HEMATOCRIT 31.8 % (42-54); IMMATURE GRANULOCYTE ABSOLUTE 0.08 K/uL (0-1); LYMPHOCYTES # (AUTO) 0.9 K/uL (1.0-4.8); LYMPHOCYTES % (AUTO) 6.1 % (21.0-51.0); MEAN CORPUSCULAR HGB CONC 32.7 g/dL (32.0-36.0); MEAN CORPUSCULAR VOLUME 85.7 fL (79-99); MONOCYTES # (AUTO) 0.1 K/uL (0.1-1.0); MONOCYTES % (AUTO) 0.9 % (3.0-13.0); NEUTROPHILS % (AUTO) 92.2 % (40.0-77.0); PLATELET COUNT (AUTO) 204 K/uL (130-400); RED BLOOD CELL COUNT(AUTO) 3.71 MIL/uL (4.50-6.20); RED CELL DISTRIBUTION WIDTH 14.8 % (11.0-15.5); WHITE BLOOD COUNT (AUTO) 14.1 K/uL (4.8-10.8)
[2022-11-18] MEDS: SOLU-MEDROL 40MG VIAL IVP SCH ×3 (03:58→20:07)
[2022-11-18 04:11] LABS: CREATININE 1.9 mg/dL (0.5-1.5); MAGNESIUM 2.1 mg/dL (1.80-2.40); PHOSPHORUS 5.2 mg/dL (2.5-4.9); POTASSIUM 3.8 mmol/L (3.5-5.1)
[2022-11-18 04:14] LABS: ABG BASE EXCESS -0.7 mmol/L (-2.0-3.0); ABG HCO3 22.6 mmol/L (21.0-28.0); ABG OXYGEN SATURATION 94.9 % (95.0-99.0); ABG PCO2 34 mmHg (35-48); ABG PH 7.445 (7.35-7.450); PO2, ARTERIAL BG 70.2 mmHg (83.0-108.0); VENT MODE, BG AC (ROOM AIR)
[2022-11-18] MEDS: BUDESONIDE 0.5 MG/2 ML INH IH SCH ×2 (04:32→18:17)
[2022-11-18] MEDS: ALBUTEROL 0.083% 2.5 MG/3 ML INH IH SCH ×4 (04:32→23:03)
[2022-11-18] MEDS: IPRATROPIUM 0.5 MG/2.5 ML INH IH SCH ×4 (04:32→23:03)
[2022-11-18] MEDS ORDERED: CALCIUM GLUC 1GM/10ML VIAL IVPB ONE (05:00)
[2022-11-18] MEDS ORDERED: CALCIUM GLUC 1GM/10ML VIAL ONE (05:11)
[2022-11-18] MEDS: DOXYCYCLINE 100MG+NS 250ML 250 ML IV SCH ×2 (05:21→17:42)
[2022-11-18] MEDS: LEVOTHYROXINE 50 MCG TABLET PO SCH (05:31)
[2022-11-18] MEDS: LEVOTHYROXINE 100 MCG TABLET PO SCH (05:31)
[2022-11-18] MEDS: INSULIN HUMULIN R 100 UNIT/ML 3ML SQ SCH ×8 (06:22→23:51)
[2022-11-18] MEDS: OSELTAMIVIR PHOSPHATE 75 MG CAP PO SCH ×2 (08:46→20:07)
[2022-11-18] MEDS: CARVEDILOL 25 MG TABLET PO SCH ×2 (08:47→20:08)
[2022-11-18] MEDS: ASPIRIN 81MG CHEW TAB PO SCH (08:47)
[2022-11-18] MEDS: FUROSEMIDE 100MG VIAL 100 MG in 0.9%NACL 100ML 100 ML IV SCH ×2 (08:48→19:08)
[2022-11-18] MEDS: INSULIN GLARGINE 100 UNITS/ML 10 ML VIAL SQ SCH (08:49)
[2022-11-18] MEDS: CISATRACURIUM BESYLATE 100 MG in 0.9%NACL 100ML 100 ML IV SCH (09:05)
[2022-11-18] MEDS: FAMOTIDINE 20MG VIAL IV SCH ×2 (09:10→20:07)
[2022-11-18] MEDS: KETAMINE 50MG/ML SYRINGE 100 MG in 0.9%NACL 100ML 100 ML IV SCH ×3 (10:11→20:31)
[2022-11-18] MEDS: FENTANYL 2500MCG+NS 250ML 250 ML IV SCH ×2 (11:08→20:13)
[2022-11-18] MEDS: CEFTRIAXONE 2GM VIAL IVPB SCH (11:24)
[2022-11-18 11:34] LABS: CREATININE 2.5 mg/dL (0.5-1.5); POTASSIUM 4.4 mmol/L (3.5-5.1)
[2022-11-18 11:37] LABS: INR 1.05 (0.85-1.15); PROTHROMBIN TIME 12.1 SEC (9.6-11.6)
[2022-11-18 11:38] LABS: PARTIAL THROMBOPLASTIN TIME 35.3 SEC (26.3-35.5)
[2022-11-18 11:46] LABS: ABG BASE EXCESS -3.1 mmol/L (-2.0-3.0); ABG HCO3 23.1 mmol/L (21.0-28.0); ABG OXYGEN SATURATION 87.3 % (95.0-99.0); ABG PCO2 46 mmHg (35-48); ABG PH 7.318 (7.35-7.450); CARBON MONOXIDE 0.5; HHb 12.6; PO2, ARTERIAL BG 58.9 mmHg (83.0-108.0); VENT MODE, BG AC (ROOM AIR)
[2022-11-18] MEDS: HEPARIN 5,000 UNIT VIAL SQ SCH ×2 (15:13→23:47)
[2022-11-18 15:56] LABS: CREATININE,URINE RANDOM 273 mg/dL (30-135); SODIUM,URINE RANDOM < 14 mmol/l (40-220)
[2022-11-18] MEDS ORDERED: COMPOUND IV REFRIGERATED 1 EACH IVSOLN MISC PRN (18:30)
[2022-11-18] MEDS: ATORVASTATIN 40 MG TABLET PO SCH (20:08)
[2022-11-18 20:30] LABS: CREATININE 2.7 mg/dL (0.5-1.5); POTASSIUM 5.4 mmol/L (3.5-5.1)
[2022-11-18 21:40] LABS: ALBUMIN 1.7 g/dL (3.5-5.0)
[2022-11-19] VITALS (115 sets, daily range): BP systolic 102–163; BP diastolic 64–102; PULSE 56–78; RESP 9–94; TEMP 96.9–97.1; O2SAT 97–100
[2022-11-19] MEDS: KETAMINE 50MG/ML SYRINGE 100 MG in 0.9%NACL 100ML 100 ML IV SCH ×2 (02:25→10:55)
[2022-11-19] MEDS: CISATRACURIUM BESYLATE 100 MG in 0.9%NACL 100ML 100 ML IV SCH ×2 (02:25→13:36)
[2022-11-19 04:02] LABS: BASOPHILS # (AUTO) 0.02 K/uL (0.00-0.20); BASOPHILS % (AUTO) 0.1 % (0.0-5.0); HEMATOCRIT 32.9 % (42-54); IMMATURE GRANULOCYTE ABSOLUTE 0.16 K/uL (0-1); LYMPHOCYTES # (AUTO) 0.9 K/uL (1.0-4.8); LYMPHOCYTES % (AUTO) 4.3 % (21.0-51.0); MEAN CORPUSCULAR HEMOGLOBIN 27.7 pg (27.0-33.0); MEAN CORPUSCULAR HGB CONC 31.3 g/dL (32.0-36.0); MEAN CORPUSCULAR VOLUME 88.4 fL (79-99); MONOCYTES # (AUTO) 0.4 K/uL (0.1-1.0); MONOCYTES % (AUTO) 1.9 % (3.0-13.0); NEUTROPHILS # (AUTO) 18.7 K/uL (1.8-7.7); NEUTROPHILS % (AUTO) 92.9 % (40.0-77.0); PLATELET COUNT (AUTO) 206 K/uL (130-400); RED BLOOD CELL COUNT(AUTO) 3.72 MIL/uL (4.50-6.20); RED CELL DISTRIBUTION WIDTH 14.8 % (11.0-15.5); WHITE BLOOD COUNT (AUTO) 20.1 K/uL (4.8-10.8)
[2022-11-19 04:22] LABS: ABG BASE EXCESS -4.1 mmol/L (-2.0-3.0); ABG HCO3 22.9 mmol/L (21.0-28.0); ABG OXYGEN SATURATION 98.4 % (95.0-99.0); ABG PCO2 49 mmHg (35-48); ABG PH 7.285 (7.35-7.450); PO2, ARTERIAL BG 138.7 mmHg (83.0-108.0); VENT MODE, BG AC (ROOM AIR)
[2022-11-19 04:30] LABS: CREATININE 2.6 mg/dL (0.5-1.5); POTASSIUM 4.9 mmol/L (3.5-5.1)
[2022-11-19] MEDS: DOXYCYCLINE 100MG+NS 250ML 250 ML IV SCH ×2 (05:31→19:51)
[2022-11-19] MEDS: INSULIN HUMULIN R 100 UNIT/ML 3ML SQ SCH ×4 (05:33→18:00)
[2022-11-19] MEDS: LEVOTHYROXINE 50 MCG TABLET PO SCH (06:21)
[2022-11-19] MEDS: LEVOTHYROXINE 100 MCG TABLET PO SCH (06:21)
[2022-11-19] MEDS: BUDESONIDE 0.5 MG/2 ML INH IH SCH ×2 (06:22→18:50)
[2022-11-19] MEDS: ALBUTEROL 0.083% 2.5 MG/3 ML INH IH SCH ×3 (06:22→18:49)
[2022-11-19] MEDS: IPRATROPIUM 0.5 MG/2.5 ML INH IH SCH ×3 (06:22→18:49)
[2022-11-19] MEDS: ASPIRIN 81MG CHEW TAB PO SCH (07:52)
[2022-11-19] MEDS: HEPARIN 5,000 UNIT VIAL SQ SCH ×2 (07:54→22:44)
[2022-11-19] MEDS: OSELTAMIVIR PHOSPHATE 75 MG CAP PO SCH ×2 (07:56→20:23)
[2022-11-19] MEDS: CARVEDILOL 25 MG TABLET PO SCH ×2 (08:48→20:23)
[2022-11-19] MEDS: HYDRALAZINE 25MG TABLET PO SCH ×2 (08:48→16:16)
[2022-11-19] MEDS ORDERED: INSULIN GLARGINE 100 UNITS/ML 10 ML VIAL SQ SCH (09:00)
[2022-11-19] MEDS: FUROSEMIDE 100MG VIAL 100 MG in 0.9%NACL 100ML 100 ML IV SCH ×2 (09:35→22:55)
[2022-11-19] MEDS: MIDAZOLAM 50MG-0.9% NS 50ML 50 ML IV SCH ×3 (09:36→19:55)
[2022-11-19] MEDS ORDERED: RENAL DOSE IV PRN (10:00)
[2022-11-19] MEDS ORDERED: LEVOTHYROXINE 100MCG VIAL IV SCH (10:00)
[2022-11-19] MEDS: METOLAZONE 2.5 MG TABLET PO SCH (10:01)
[2022-11-19] MEDS: CHLORHEXIDINE GLUCONATE 15 ML MOUTHWASH MM SCH ×3 (10:59→22:33)
[2022-11-19] MEDS: LINEZOLID 600 MG/ISO-OSM 300 ML IV SCH ×2 (11:00→21:58)
[2022-11-19] MEDS: MEROPENEM 500 MG in 0.9%NACL 100ML 100 ML IV SCH ×2 (11:52→22:33)
[2022-11-19 12:05] LABS: HEMATOCRIT 30.3 % (42-54)
[2022-11-19 12:23] LABS: % IRON SATURATION 11.1 % (30-44)
[2022-11-19 12:24] LABS: ALBUMIN 1.7 g/dL (3.5-5.0); CREATININE 2.7 mg/dL (0.5-1.5); POTASSIUM 4.5 mmol/L (3.5-5.1)
[2022-11-19] MEDS ORDERED: LIDOCAINE HCL MPF 1% 5ML VIAL ONE (14:58)
[2022-11-19] MEDS ORDERED: LIDOCAINE HCL MPF 1% 5ML VIAL IM ONE (15:30)
[2022-11-19] MEDS ORDERED: FENTANYL 1000MCG+NS 100ML 0 ML IV ONE (17:34)
[2022-11-19] MEDS: FENTANYL 2500MCG+NS 250ML 250 ML IV SCH (17:44)
[2022-11-19] MEDS: CALCIUM GLUC IV SCH (17:51)
[2022-11-19] MEDS: [UNRECOGNIZED DRUG - OTHER] IV SCH (17:51)
[2022-11-19 18:17] LABS: HEPATITIS B SURFACE ANTIGEN Non-Reactive (Nonreactive)
[2022-11-19] MEDS: ATORVASTATIN 40 MG TABLET PO SCH (19:51)
[2022-11-19] MEDS: FAMOTIDINE 20MG VIAL IV SCH (19:51)
[2022-11-19] MEDS ORDERED: CALCIUM GLUC 1GM 1 GM in 0.9%NACL 100ML 100 ML IV SCH (21:30)
[2022-11-19 21:33] LABS: CREATININE 2.3 mg/dL (0.5-1.5); POTASSIUM 3.1 mmol/L (3.5-5.1)
[2022-11-19] MEDS: ARTIFICIAL TEARS 3.5 GM OINTMENT OU SCH (21:56)
[2022-11-19 22:08] LABS: MYCOPLASMA AB IGM <770 U/mL (0-769)
[2022-11-20] VITALS (90 sets, daily range): BP systolic 90–181; BP diastolic 38–112; PULSE 63–86; RESP 16–29; TEMP 96.9–97; O2SAT 92–99
[2022-11-20] MEDS: IPRATROPIUM 0.5 MG/2.5 ML INH IH SCH ×5 (00:16→23:17)
[2022-11-20] MEDS: ALBUTEROL 0.083% 2.5 MG/3 ML INH IH SCH ×5 (00:16→23:17)
[2022-11-20] MEDS: HYDRALAZINE 25MG TABLET PO SCH ×3 (01:08→17:30)
[2022-11-20] MEDS: MIDAZOLAM 50MG-0.9% NS 50ML 50 ML IV SCH ×5 (01:09→22:17)
[2022-11-20] MEDS: KETAMINE 50MG/ML SYRINGE 100 MG in 0.9%NACL 100ML 100 ML IV SCH ×2 (01:11→09:50)
[2022-11-20] MEDS: CISATRACURIUM BESYLATE 100 MG in 0.9%NACL 100ML 100 ML IV SCH ×2 (03:12→17:40)
[2022-11-20] MEDS: FENTANYL 2500MCG+NS 250ML 250 ML IV SCH ×3 (03:13→22:06)
[2022-11-20] MEDS: CHLORHEXIDINE GLUCONATE 15 ML MOUTHWASH MM SCH ×4 (04:00→22:18)
[2022-11-20] MEDS: FUROSEMIDE 100MG VIAL 100 MG in 0.9%NACL 100ML 100 ML IV SCH ×3 (04:08→19:35)
[2022-11-20 04:49] LABS: BASOPHILS # (AUTO) 0.02 K/uL (0.00-0.20); BASOPHILS % (AUTO) 0.1 % (0.0-5.0); EOSINOPHILS # (AUTO) 0.01 K/uL (0.00-0.70); EOSINOPHILS % (AUTO) 0.1 % (0.0-8.0); HEMATOCRIT 31.2 % (42-54); IMMATURE GRANULOCYTE ABSOLUTE 0.08 K/uL (0-1); LYMPHOCYTES # (AUTO) 1.4 K/uL (1.0-4.8); LYMPHOCYTES % (AUTO) 8.1 % (21.0-51.0); MEAN CORPUSCULAR HEMOGLOBIN 27.7 pg (27.0-33.0); MEAN CORPUSCULAR HGB CONC 33.3 g/dL (32.0-36.0); MONOCYTES # (AUTO) 1.2 K/uL (0.1-1.0); MONOCYTES % (AUTO) 7.2 % (3.0-13.0); NEUTROPHILS # (AUTO) 14.1 K/uL (1.8-7.7); PLATELET COUNT (AUTO) 193 K/uL (130-400); RED BLOOD CELL COUNT(AUTO) 3.76 MIL/uL (4.50-6.20); RED CELL DISTRIBUTION WIDTH 14.8 % (11.0-15.5); WHITE BLOOD COUNT (AUTO) 16.7 K/uL (4.8-10.8)
[2022-11-20 04:56] LABS: CREATININE 2.3 mg/dL (0.5-1.5); POTASSIUM 3.2 mmol/L (3.5-5.1)
[2022-11-20 05:03] LABS: MAGNESIUM 1.9 mg/dL (1.80-2.40)
[2022-11-20] MEDS: INSULIN HUMULIN R 100 UNIT/ML 3ML SQ SCH ×4 (06:00→17:58)
[2022-11-20] MEDS: BUDESONIDE 0.5 MG/2 ML INH IH SCH ×2 (06:23→18:43)
[2022-11-20] MEDS: DOXYCYCLINE 100MG+NS 250ML 250 ML IV SCH ×2 (06:30→17:57)
[2022-11-20] MEDS ORDERED: CALCIUM GLUC 1GM/10ML VIAL IVPB ONE (06:30)
[2022-11-20] MEDS: HEPARIN 5,000 UNIT VIAL SQ SCH ×3 (06:32→22:16)
[2022-11-20 06:35] LABS: ABG BASE EXCESS 1.1 mmol/L (-2.0-3.0); ABG HCO3 24.7 mmol/L (21.0-28.0); ABG OXYGEN SATURATION 92.3 % (95.0-99.0); ABG PCO2 36 mmHg (35-48); ABG PH 7.456 (7.35-7.450); CARBON MONOXIDE 0.1; HHb 7.7; PO2, ARTERIAL BG 65.1 mmHg (83.0-108.0); VENT MODE, BG AC-VC (ROOM AIR)
[2022-11-20] MEDS ORDERED: CALCIUM GLUC 1GM 2 GM in 0.9%NACL 100ML 100 ML IV ONE (07:00)
[2022-11-20] MEDS: OSELTAMIVIR PHOSPHATE 75 MG CAP PO SCH (08:59)
[2022-11-20] MEDS: ASPIRIN 81MG CHEW TAB PO SCH (08:59)
[2022-11-20] MEDS ORDERED: METOLAZONE 2.5 MG TABLET PO SCH (09:00)
[2022-11-20] MEDS: CARVEDILOL 25 MG TABLET PO SCH ×2 (09:01→20:46)
[2022-11-20] MEDS: INSULIN GLARGINE 100 UNITS/ML 10 ML VIAL SQ SCH (09:07)
[2022-11-20] MEDS: METOLAZONE 2.5 MG TABLET PO SCH (10:00)
[2022-11-20] MEDS: LEVOTHYROXINE 100MCG VIAL IV SCH (11:48)
[2022-11-20] MEDS ORDERED: METHYLNALTREXONE BROMIDE 12 MG/0.6 ML VIAL SQ ONE (12:00)
[2022-11-20] MEDS: MEROPENEM 500 MG in 0.9%NACL 100ML 100 ML IV SCH ×2 (12:19→22:17)
[2022-11-20 13:07] LABS: CREATININE 2.2 mg/dL (0.5-1.5); POTASSIUM 3.2 mmol/L (3.5-5.1)
[2022-11-20] MEDS: LINEZOLID 600 MG/ISO-OSM 300 ML IV SCH ×2 (13:21→22:17)
[2022-11-20 15:59] LABS: ABG BASE EXCESS -0.4 mmol/L (-2.0-3.0); ABG HCO3 22.5 mmol/L (21.0-28.0); ABG OXYGEN SATURATION 93.9 % (95.0-99.0); ABG PCO2 31 mmHg (35-48); ABG PH 7.474 (7.35-7.450); CARBON MONOXIDE 0.4; HHb 6.1; PO2, ARTERIAL BG 71.5 mmHg (83.0-108.0); VENT MODE, BG AC-VC (ROOM AIR)
[2022-11-20] MEDS: LACTULOSE 20 GM/30 ML UDCUP PO PRN (16:04)
[2022-11-20 20:40] LABS: CREATININE 2.7 mg/dL (0.5-1.5); POTASSIUM 3.4 mmol/L (3.5-5.1)
[2022-11-20] MEDS: FAMOTIDINE 20MG VIAL IV SCH (20:44)
[2022-11-20] MEDS: ATORVASTATIN 40 MG TABLET PO SCH (20:44)
[2022-11-20] MEDS: ARTIFICIAL TEARS 3.5 GM OINTMENT OU SCH (20:53)
[2022-11-21] VITALS (95 sets, daily range): BP systolic 88–161; BP diastolic 44–99; PULSE 67–95; RESP 15–24; TEMP 99.1–100; O2SAT 92–99
[2022-11-21] MEDS: INSULIN HUMULIN R 100 UNIT/ML 3ML SQ SCH ×8 (00:27→23:38)
[2022-11-21] MEDS: HYDRALAZINE 25MG TABLET PO SCH ×2 (02:35→09:30)
[2022-11-21] MEDS: CHLORHEXIDINE GLUCONATE 15 ML MOUTHWASH MM SCH ×4 (03:31→21:05)
[2022-11-21] MEDS: MIDAZOLAM 50MG-0.9% NS 50ML 50 ML IV SCH (03:32)
[2022-11-21] MEDS: FUROSEMIDE 100MG VIAL 100 MG in 0.9%NACL 100ML 100 ML IV SCH ×3 (03:32→23:45)
[2022-11-21 04:23] LABS: BASOPHILS # (AUTO) 0.03 K/uL (0.00-0.20); BASOPHILS % (AUTO) 0.1 % (0.0-5.0); EOSINOPHILS # (AUTO) 0.01 K/uL (0.00-0.70); HEMATOCRIT 28.6 % (42-54); IMMATURE GRANULOCYTE ABSOLUTE 0.17 K/uL (0-1); LYMPHOCYTES # (AUTO) 1.1 K/uL (1.0-4.8); LYMPHOCYTES % (AUTO) 5.4 % (21.0-51.0); MEAN CORPUSCULAR HEMOGLOBIN 27.8 pg (27.0-33.0); MEAN CORPUSCULAR HGB CONC 32.5 g/dL (32.0-36.0); MEAN CORPUSCULAR VOLUME 85.6 fL (79-99); MONOCYTES # (AUTO) 1.4 K/uL (0.1-1.0); MONOCYTES % (AUTO) 6.9 % (3.0-13.0); NEUTROPHILS # (AUTO) 17.6 K/uL (1.8-7.7); NEUTROPHILS % (AUTO) 86.8 % (40.0-77.0); PLATELET COUNT (AUTO) 156 K/uL (130-400); RED BLOOD CELL COUNT(AUTO) 3.34 MIL/uL (4.50-6.20); RED CELL DISTRIBUTION WIDTH 14.7 % (11.0-15.5); WHITE BLOOD COUNT (AUTO) 20.3 K/uL (4.8-10.8)
[2022-11-21] MEDS: DOXYCYCLINE 100MG+NS 250ML 250 ML IV SCH (05:58)
[2022-11-21] MEDS: CISATRACURIUM BESYLATE 100 MG in 0.9%NACL 100ML 100 ML IV SCH ×2 (06:03→19:26)
[2022-11-21] MEDS: HEPARIN 5,000 UNIT VIAL SQ SCH ×3 (06:03→21:10)
[2022-11-21] MEDS: ALBUTEROL 0.083% 2.5 MG/3 ML INH IH SCH ×4 (06:26→23:20)
[2022-11-21] MEDS: IPRATROPIUM 0.5 MG/2.5 ML INH IH SCH ×4 (06:26→23:21)
[2022-11-21] MEDS: BUDESONIDE 0.5 MG/2 ML INH IH SCH ×2 (06:26→18:38)
[2022-11-21 07:46] LABS: ABG BASE EXCESS 1.7 mmol/L (-2.0-3.0); ABG OXYGEN SATURATION 92.1 % (95.0-99.0); ABG PCO2 34 mmHg (35-48); CARBON MONOXIDE 0.1; DEVICE COMMENT RR, LEO,RN; HHb 7.8; PO2, ARTERIAL BG 64.1 mmHg (83.0-108.0); VENT MODE, BG AC (ROOM AIR)
[2022-11-21] MEDS: LEVOTHYROXINE 100MCG VIAL IV SCH (08:18)
[2022-11-21] MEDS: ASPIRIN 81MG CHEW TAB PO SCH (08:19)
[2022-11-21] MEDS: INSULIN GLARGINE 100 UNITS/ML 10 ML VIAL SQ SCH (08:22)
[2022-11-21 09:38] LABS: MAGNESIUM 1.7 mg/dL (1.80-2.40); PHOSPHORUS 6.2 mg/dL (2.5-4.9)
[2022-11-21] MEDS: FENTANYL 2500MCG+NS 250ML 250 ML IV SCH ×2 (09:46→21:15)
[2022-11-21] MEDS: [UNRECOGNIZED DRUG - OTHER] IV SCH ×2 (10:57→11:32)
[2022-11-21] MEDS: CALCIUM GLUC IV SCH ×2 (10:57→11:32)
[2022-11-21] MEDS ORDERED: HEPARIN 5,000 UNIT VIAL IJ PRN (13:00)
[2022-11-21] MEDS: CARVEDILOL 25 MG TABLET PO SCH ×2 (14:23→21:05)
[2022-11-21] MEDS: MEROPENEM 500 MG in 0.9%NACL 100ML 100 ML IV SCH ×2 (14:25→21:06)
[2022-11-21 14:28] LABS: ABG BASE EXCESS -0.2 mmol/L (-2.0-3.0); ABG HCO3 26.1 mmol/L (21.0-28.0); ABG OXYGEN SATURATION 93.4 % (95.0-99.0); ABG PCO2 50 mmHg (35-48); ABG PH 7.338 (7.35-7.450); CARBON MONOXIDE 0.7; DEVICE COMMENT RR, LEO,RN; HHb 6.5; PO2, ARTERIAL BG 76.6 mmHg (83.0-108.0); VENT MODE, BG AC (ROOM AIR)
[2022-11-21] MEDS: ATORVASTATIN 40 MG TABLET PO SCH (21:05)
[2022-11-21] MEDS: DOXYCYCLINE HYCLATE 100 MG TABLET PO SCH (21:05)
[2022-11-21] MEDS: FAMOTIDINE 20MG VIAL IV SCH (21:06)
[2022-11-21] MEDS: ARTIFICIAL TEARS 3.5 GM OINTMENT OU SCH (21:11)
[2022-11-22] VITALS (53 sets, daily range): BP systolic 103–208; BP diastolic 45–117; PULSE 81–99; RESP 14–35; O2SAT 91–97
[2022-11-22] MEDS: ACETAMINOPHEN 325 MG TAB PO PRN ×3 (01:24→13:43)
[2022-11-22] MEDS: IPRATROPIUM 0.5 MG/2.5 ML INH IH SCH ×4 (12:00→23:17)
[2022-11-22] MEDS: INSULIN HUMULIN R 100 UNIT/ML 3ML SQ SCH ×6 (12:00→17:24)
[2022-11-22] MEDS: ALBUTEROL 0.083% 2.5 MG/3 ML INH IH SCH ×4 (12:00→23:19)
[2022-11-22] MEDS: CHLORHEXIDINE GLUCONATE 15 ML MOUTHWASH MM SCH ×3 (13:36→21:06)
[2022-11-22] MEDS: FLUCONAZOLE 100 MG TAB PO SCH (13:36)
[2022-11-22] MEDS: INSULIN GLARGINE 100 UNITS/ML 10 ML VIAL SQ SCH (13:36)
[2022-11-22] MEDS: DOXYCYCLINE HYCLATE 100 MG TABLET PO SCH ×2 (13:36→20:34)
[2022-11-22] MEDS: MEROPENEM 500 MG in 0.9%NACL 100ML 100 ML IV SCH ×2 (13:36→21:06)
[2022-11-22] MEDS: HEPARIN 5,000 UNIT VIAL SQ SCH ×3 (13:36→21:07)
[2022-11-22] MEDS: BUDESONIDE 0.5 MG/2 ML INH IH SCH ×2 (13:36→18:38)
[2022-11-22] MEDS: ASPIRIN 81MG CHEW TAB PO SCH (13:36)
[2022-11-22] MEDS: CARVEDILOL 25 MG TABLET PO SCH ×2 (13:36→20:34)
[2022-11-22] MEDS: LEVOTHYROXINE 100MCG VIAL IV SCH (13:36)
[2022-11-22 14:44] LABS: BASOPHILS # (AUTO) 0.03 K/uL (0.00-0.20); BASOPHILS % (AUTO) 0.2 % (0.0-5.0); EOSINOPHILS # (AUTO) 0.17 K/uL (0.00-0.70); HEMATOCRIT 31.8 % (42-54); LYMPHOCYTES # (AUTO) 1.6 K/uL (1.0-4.8); MEAN CORPUSCULAR HEMOGLOBIN 27.5 pg (27.0-33.0); MEAN CORPUSCULAR HGB CONC 32.1 g/dL (32.0-36.0); MEAN CORPUSCULAR VOLUME 85.7 fL (79-99); MONOCYTES # (AUTO) 1.3 K/uL (0.1-1.0); MONOCYTES % (AUTO) 7.5 % (3.0-13.0); NEUTROPHILS # (AUTO) 14.6 K/uL (1.8-7.7); NEUTROPHILS % (AUTO) 81.7 % (40.0-77.0); PLATELET COUNT (AUTO) 192 K/uL (130-400); RED BLOOD CELL COUNT(AUTO) 3.71 MIL/uL (4.50-6.20); RED CELL DISTRIBUTION WIDTH 14.6 % (11.0-15.5); WHITE BLOOD COUNT (AUTO) 17.9 K/uL (4.8-10.8)
[2022-11-22 16:36] LABS: ALBUMIN 1.4 g/dL (3.5-5.0); BILIRUBIN,TOTAL 0.9 mg/dL (0.2-1.0); CREATININE 2.2 mg/dL (0.5-1.5); MAGNESIUM 1.7 mg/dL (1.80-2.40); POTASSIUM 3.2 mmol/L (3.5-5.1); TOTAL PROTEIN, SERUM 5.7 g/dL (6.0-8.3)
[2022-11-22] MEDS: SOLU-MEDROL 40MG VIAL IVP SCH (17:23)
[2022-11-22] MEDS ORDERED: BUDESONIDE 0.5 MG/2 ML INH IH SCH (18:00)
[2022-11-22] MEDS: ATORVASTATIN 40 MG TABLET PO SCH (20:34)
[2022-11-22] MEDS: FAMOTIDINE 20MG VIAL IV SCH (20:36)
[2022-11-22] MEDS: DEXMEDETOMIDINE 400MCG/NS100ML IV SCH ×2 (20:54→23:15)
[2022-11-22] MEDS: ARTIFICIAL TEARS 3.5 GM OINTMENT OU SCH (20:59)
[2022-11-22] MEDS: FUROSEMIDE 100MG VIAL 100 MG in 0.9%NACL 100ML 100 ML IV SCH (21:15)
[2022-11-22] MEDS: HYDRALAZINE 20MG/ML VIAL IV PRN (21:30)
[2022-11-22] MEDS ORDERED: FENTANYL 1000MCG+NS 100ML 100 ML IV SCH (22:30)
[2022-11-22] MEDS: ZOLPIDEM TARTRATE 5 MG TAB PO PRN (22:37)
[2022-11-22] MEDS: FENTANYL 2500MCG+NS 250ML IV SCH (22:45)
[2022-11-23] VITALS (87 sets, daily range): BP systolic 90–188; BP diastolic 50–100; PULSE 46–91; RESP 13–34; TEMP 99.2–100.4; O2SAT 93–100
[2022-11-23] MEDS: SOLU-MEDROL 40MG VIAL IVP SCH ×3 (01:00→17:03)
[2022-11-23] MEDS: INSULIN HUMULIN R 100 UNIT/ML 3ML SQ SCH ×10 (01:01→23:16)
[2022-11-23] MEDS: DEXMEDETOMIDINE 400MCG/NS100ML IV SCH ×8 (01:05→23:03)
[2022-11-23] MEDS ORDERED: HYDRALAZINE 20MG/ML VIAL IM ONE (01:40)
[2022-11-23] MEDS ORDERED: HYDRALAZINE 20MG/ML VIAL IV ONE (02:00)
[2022-11-23] MEDS: CHLORHEXIDINE GLUCONATE 15 ML MOUTHWASH MM SCH ×4 (03:03→20:45)
[2022-11-23] MEDS: HEPARIN 5,000 UNIT VIAL SQ SCH ×3 (05:26→21:06)
[2022-11-23] MEDS: FENTANYL 2500MCG+NS 250ML IV SCH ×3 (06:17→23:56)
[2022-11-23 06:32] LABS: BASOPHILS # (AUTO) 0.01 K/uL (0.00-0.20); BASOPHILS % (AUTO) 0.1 % (0.0-5.0); HEMATOCRIT 35.9 % (42-54); IMMATURE GRANULOCYTE ABSOLUTE 0.06 K/uL (0-1); LYMPHOCYTES # (AUTO) 0.7 K/uL (1.0-4.8); MEAN CORPUSCULAR HEMOGLOBIN 27.7 pg (27.0-33.0); MEAN CORPUSCULAR HGB CONC 33.1 g/dL (32.0-36.0); MEAN CORPUSCULAR VOLUME 83.5 fL (79-99); MONOCYTES # (AUTO) 0.1 K/uL (0.1-1.0); MONOCYTES % (AUTO) 0.6 % (3.0-13.0); NEUTROPHILS # (AUTO) 12.5 K/uL (1.8-7.7); NEUTROPHILS % (AUTO) 93.8 % (40.0-77.0); PLATELET COUNT (AUTO) 191 K/uL (130-400); RED CELL DISTRIBUTION WIDTH 14.3 % (11.0-15.5); WHITE BLOOD COUNT (AUTO) 13.3 K/uL (4.8-10.8)
[2022-11-23 06:48] LABS: ALBUMIN 1.4 g/dL (3.5-5.0); BILIRUBIN,TOTAL 0.8 mg/dL (0.2-1.0); CREATININE 2.1 mg/dL (0.5-1.5); MAGNESIUM 1.8 mg/dL (1.80-2.40); POTASSIUM 3.4 mmol/L (3.5-5.1); TOTAL PROTEIN, SERUM 6.2 g/dL (6.0-8.3)
[2022-11-23] MEDS: ALBUTEROL 0.083% 2.5 MG/3 ML INH IH SCH ×4 (06:56→23:51)
[2022-11-23] MEDS: BUDESONIDE 0.5 MG/2 ML INH IH SCH ×2 (06:56→18:53)
[2022-11-23] MEDS: IPRATROPIUM 0.5 MG/2.5 ML INH IH SCH ×4 (06:57→23:51)
[2022-11-23] MEDS: HYDRALAZINE 20MG/ML VIAL IV PRN (07:41)
[2022-11-23] MEDS: LEVOTHYROXINE 100MCG VIAL IV SCH (08:39)
[2022-11-23] MEDS: ASPIRIN 81MG CHEW TAB PO SCH (08:40)
[2022-11-23] MEDS: CARVEDILOL 25 MG TABLET PO SCH ×2 (08:40→20:06)
[2022-11-23] MEDS: FLUCONAZOLE 100 MG TAB PO SCH (08:41)
[2022-11-23] MEDS: DOXYCYCLINE HYCLATE 100 MG TABLET PO SCH ×2 (08:41→20:02)
[2022-11-23] MEDS: INSULIN GLARGINE 100 UNITS/ML 10 ML VIAL SQ SCH (08:43)
[2022-11-23] MEDS: FUROSEMIDE 100MG VIAL 100 MG in 0.9%NACL 100ML 100 ML IV SCH ×2 (09:07→19:15)
[2022-11-23] MEDS ORDERED: NOREPINEPHRIN 8MG/250ML NS 250 ML IV ONE (10:45)
[2022-11-23] MEDS ORDERED: NOREPINEPHRINE IV SCH (11:00)
[2022-11-23] MEDS ORDERED: [UNRECOGNIZED DRUG - OTHER] IV SCH (11:00)
[2022-11-23] MEDS ORDERED: METOLAZONE 2.5 MG TABLET PO ONE (13:47)
[2022-11-23] MEDS: MEROPENEM 500 MG in 0.9%NACL 100ML 100 ML IV SCH ×2 (13:59→21:05)
[2022-11-23 14:39] LABS: ABG BASE EXCESS 3.6 mmol/L (-2.0-3.0); ABG OXYGEN SATURATION 94.8 % (95.0-99.0); ABG PCO2 42 mmHg (35-48); ABG PH 7.444 (7.35-7.450); CARBON MONOXIDE 0.8; HHb 5.1; PO2, ARTERIAL BG 75.7 mmHg (83.0-108.0); VENT MODE, BG AC (ROOM AIR)
[2022-11-23] MEDS: LACTULOSE 20 GM/30 ML UDCUP PO PRN (17:03)
[2022-11-23] MEDS: ATORVASTATIN 40 MG TABLET PO SCH (20:02)
[2022-11-23] MEDS: FAMOTIDINE 20MG VIAL IV SCH (20:02)
[2022-11-23] MEDS: ARTIFICIAL TEARS 3.5 GM OINTMENT OU SCH (20:28)
[2022-11-24] VITALS (126 sets, daily range): BP systolic 94–182; BP diastolic 58–111; PULSE 61–87; RESP 13–40; O2SAT 94–100
[2022-11-24] MEDS: DEXMEDETOMIDINE 400MCG/NS100ML IV SCH ×4 (00:53→09:41)
[2022-11-24] MEDS: CHLORHEXIDINE GLUCONATE 15 ML MOUTHWASH MM SCH ×4 (03:00→22:40)
[2022-11-24 04:02] LABS: BASOPHILS # (AUTO) 0.01 K/uL (0.00-0.20); BASOPHILS % (AUTO) 0.1 % (0.0-5.0); IMMATURE GRANULOCYTE ABSOLUTE 0.05 K/uL (0-1); LYMPHOCYTES # (AUTO) 0.7 K/uL (1.0-4.8); LYMPHOCYTES % (AUTO) 5.9 % (21.0-51.0); MEAN CORPUSCULAR HEMOGLOBIN 27.5 pg (27.0-33.0); MEAN CORPUSCULAR HGB CONC 33.4 g/dL (32.0-36.0); MEAN CORPUSCULAR VOLUME 82.2 fL (79-99); MONOCYTES # (AUTO) 0.4 K/uL (0.1-1.0); MONOCYTES % (AUTO) 3.1 % (3.0-13.0); NEUTROPHILS # (AUTO) 10.2 K/uL (1.8-7.7); NEUTROPHILS % (AUTO) 90.5 % (40.0-77.0); PLATELET COUNT (AUTO) 217 K/uL (130-400); RED BLOOD CELL COUNT(AUTO) 4.26 MIL/uL (4.50-6.20); RED CELL DISTRIBUTION WIDTH 14.1 % (11.0-15.5); WHITE BLOOD COUNT (AUTO) 11.2 K/uL (4.8-10.8)
[2022-11-24 04:40] LABS: ALBUMIN 1.6 g/dL (3.5-5.0); BILIRUBIN,TOTAL 0.6 mg/dL (0.2-1.0); CREATININE 2.4 mg/dL (0.5-1.5); MAGNESIUM 1.9 mg/dL (1.80-2.40); POTASSIUM 3.3 mmol/L (3.5-5.1); TOTAL PROTEIN, SERUM 6.1 g/dL (6.0-8.3)
[2022-11-24 05:11] LABS: ABG BASE EXCESS 0.3 mmol/L (-2.0-3.0); ABG HCO3 22.8 mmol/L (21.0-28.0); ABG OXYGEN SATURATION 95.7 % (95.0-99.0); ABG PCO2 31 mmHg (35-48); ABG PH 7.484 (7.35-7.450); PO2, ARTERIAL BG 71.8 mmHg (83.0-108.0); VENT MODE, BG AC (ROOM AIR)
[2022-11-24] MEDS: INSULIN HUMULIN R 100 UNIT/ML 3ML SQ SCH ×3 (05:25→20:55)
[2022-11-24] MEDS: HEPARIN 5,000 UNIT VIAL SQ SCH ×3 (05:28→22:11)
[2022-11-24] MEDS: HYDRALAZINE 20MG/ML VIAL IV PRN (05:32)
[2022-11-24] MEDS ORDERED: INSULIN HUMULIN R 100 UNIT/ML 3ML SQ SCH (06:00)
[2022-11-24] MEDS ORDERED: INSULIN LISPRO 100 UNIT/ML 3ML SQ SCH (06:00)
[2022-11-24] MEDS: BUDESONIDE 0.5 MG/2 ML INH IH SCH ×2 (06:11→18:43)
[2022-11-24] MEDS: IPRATROPIUM 0.5 MG/2.5 ML INH IH SCH ×4 (06:11→22:58)
[2022-11-24] MEDS: ALBUTEROL 0.083% 2.5 MG/3 ML INH IH SCH ×4 (06:11→22:59)
[2022-11-24] MEDS: FUROSEMIDE 100MG VIAL 100 MG in 0.9%NACL 100ML 100 ML IV SCH (07:08)
[2022-11-24] MEDS ORDERED: HUMAN IV SCH ×2 (07:30)
[2022-11-24] MEDS ORDERED: INSULIN REGULAR IV SCH ×2 (07:30)
[2022-11-24] MEDS ORDERED: [UNRECOGNIZED DRUG - OTHER] IV SCH ×2 (07:30)
[2022-11-24] MEDS: FENTANYL 2500MCG+NS 250ML IV SCH ×2 (08:25→23:22)
[2022-11-24] MEDS ORDERED: INSULIN REGULAR, HUMAN 3ML 100 UNIT in 0.9%NACL 100ML 99 ML IV PRN ×2 (08:30)
[2022-11-24] MEDS: METOLAZONE 2.5 MG TABLET PO SCH (08:32)
[2022-11-24] MEDS: ASPIRIN 81MG CHEW TAB PO SCH (08:32)
[2022-11-24] MEDS: DOXYCYCLINE HYCLATE 100 MG TABLET PO SCH ×2 (08:32→20:29)
[2022-11-24] MEDS: FLUCONAZOLE 100 MG TAB PO SCH (08:33)
[2022-11-24] MEDS: LEVOTHYROXINE 100MCG VIAL IV SCH (08:33)
[2022-11-24] MEDS: CARVEDILOL 25 MG TABLET PO SCH ×2 (08:33→20:29)
[2022-11-24] MEDS: SOLU-MEDROL 40MG VIAL IVP SCH ×3 (08:34→20:50)
[2022-11-24] MEDS: INSULIN GLARGINE 100 UNITS/ML 10 ML VIAL SQ SCH ×2 (08:35→20:47)
[2022-11-24] MEDS ORDERED: INSULIN GLARGINE 100 UNITS/ML 10 ML VIAL SQ SCH (09:00)
[2022-11-24] MEDS ORDERED: PROPOFOL 1000 MG/100 ML 100 ML IV ONE (09:43)
[2022-11-24] MEDS ORDERED: PROPOFOL 1000 MG/100 ML IV PRN (10:00)
[2022-11-24] MEDS ORDERED: ALTEPLASE 2MG VIAL 2 MG/VIAL VIAL IVCATH ONE (11:00)
[2022-11-24] MEDS: MEROPENEM 500 MG in 0.9%NACL 100ML 100 ML IV SCH ×2 (11:09→22:25)
[2022-11-24] MEDS: PROPOFOL 1000 MG/100 ML 100 ML IV SCH ×3 (14:17→22:09)
[2022-11-24] MEDS ORDERED: PHARMACY COMMUNICATION MISC SCH (16:30)
[2022-11-24] MEDS: FAMOTIDINE 20MG VIAL IV SCH (20:27)
[2022-11-24] MEDS: ATORVASTATIN 40 MG TABLET PO SCH (20:29)
[2022-11-24] MEDS: ARTIFICIAL TEARS 3.5 GM OINTMENT OU SCH (21:11)
[2022-11-25] VITALS (57 sets, daily range): BP systolic 97–176; BP diastolic 60–110; PULSE 55–79; RESP 15–27; O2SAT 95–100
[2022-11-25] MEDS: PROPOFOL 1000 MG/100 ML 100 ML IV SCH ×6 (01:24→23:36)
[2022-11-25] MEDS: FUROSEMIDE 100MG VIAL 100 MG in 0.9%NACL 100ML 100 ML IV SCH ×2 (03:53→13:53)
[2022-11-25] MEDS: CHLORHEXIDINE GLUCONATE 15 ML MOUTHWASH MM SCH ×4 (04:05→23:04)
[2022-11-25 05:39] LABS: BASOPHILS # (AUTO) 0.01 K/uL (0.00-0.20); BASOPHILS % (AUTO) 0.1 % (0.0-5.0); HEMATOCRIT 35.6 % (42-54); IMMATURE GRANULOCYTE ABSOLUTE 0.09 K/uL (0-1); LYMPHOCYTES % (AUTO) 6.1 % (21.0-51.0); MEAN CORPUSCULAR HEMOGLOBIN 27.7 pg (27.0-33.0); MEAN CORPUSCULAR HGB CONC 33.1 g/dL (32.0-36.0); MEAN CORPUSCULAR VOLUME 83.6 fL (79-99); MONOCYTES # (AUTO) 0.7 K/uL (0.1-1.0); MONOCYTES % (AUTO) 4.5 % (3.0-13.0); NEUTROPHILS # (AUTO) 14.1 K/uL (1.8-7.7); NEUTROPHILS % (AUTO) 88.7 % (40.0-77.0); PLATELET COUNT (AUTO) 235 K/uL (130-400); RED BLOOD CELL COUNT(AUTO) 4.26 MIL/uL (4.50-6.20); RED CELL DISTRIBUTION WIDTH 14.1 % (11.0-15.5); WHITE BLOOD COUNT (AUTO) 15.9 K/uL (4.8-10.8)
[2022-11-25] MEDS: HEPARIN 5,000 UNIT VIAL SQ SCH ×2 (06:02→13:52)
[2022-11-25] MEDS: INSULIN HUMULIN R 100 UNIT/ML 3ML SQ SCH ×2 (06:06→12:01)
[2022-11-25] MEDS: IPRATROPIUM 0.5 MG/2.5 ML INH IH SCH ×4 (06:20→23:17)
[2022-11-25] MEDS: ALBUTEROL 0.083% 2.5 MG/3 ML INH IH SCH ×4 (06:20→23:17)
[2022-11-25] MEDS: BUDESONIDE 0.5 MG/2 ML INH IH SCH ×2 (06:20→18:19)
[2022-11-25 06:23] LABS: ALBUMIN 1.9 g/dL (3.5-5.0); BILIRUBIN,TOTAL 0.6 mg/dL (0.2-1.0); CREATININE 2.9 mg/dL (0.5-1.5); MAGNESIUM 2.3 mg/dL (1.80-2.40); PHOSPHORUS 8.7 mg/dL (2.5-4.9); POTASSIUM 3.5 mmol/L (3.5-5.1); THYROID STIMULATING HORMONE 2.41 uIU/mL (0.36-3.74); TOTAL PROTEIN, SERUM 6.2 g/dL (6.0-8.3)
[2022-11-25] MEDS: DOXYCYCLINE HYCLATE 100 MG TABLET PO SCH ×2 (08:02→21:00)
[2022-11-25] MEDS: LEVOTHYROXINE 100MCG VIAL IV SCH (08:02)
[2022-11-25] MEDS: METOLAZONE 2.5 MG TABLET PO SCH (08:02)
[2022-11-25] MEDS: ASPIRIN 81MG CHEW TAB PO SCH (08:02)
[2022-11-25] MEDS: LACTULOSE 20 GM/30 ML UDCUP PO PRN (08:02)
[2022-11-25] MEDS: FLUCONAZOLE 100 MG TAB PO SCH (08:03)
[2022-11-25] MEDS: SOLU-MEDROL 40MG VIAL IVP SCH ×2 (08:03→21:42)
[2022-11-25] MEDS: CARVEDILOL 25 MG TABLET PO SCH ×2 (08:03→21:30)
[2022-11-25] MEDS: INSULIN GLARGINE 100 UNITS/ML 10 ML VIAL SQ SCH ×2 (08:05→21:00)
[2022-11-25] MEDS: HYDRALAZINE 20MG/ML VIAL IV PRN (08:08)
[2022-11-25] MEDS: POTASSIUM CHLORIDE 10% ELIXIR 20 MEQ/15 ML UDCUP PO PRN (08:17)
[2022-11-25 10:10] LABS: ABG BASE EXCESS 4.8 mmol/L (-2.0-3.0); ABG HCO3 29.1 mmol/L (21.0-28.0); ABG OXYGEN SATURATION 95.4 % (95.0-99.0); ABG PCO2 42 mmHg (35-48); ABG PH 7.462 (7.35-7.450); DEVICE COMMENT RR; PO2, ARTERIAL BG 72.8 mmHg (83.0-108.0); VENT MODE, BG AC (ROOM AIR)
[2022-11-25] MEDS: MEROPENEM 500 MG in 0.9%NACL 100ML 100 ML IV SCH ×2 (10:23→23:01)
[2022-11-25] MEDS: INSULIN REGULAR, HUMAN 3ML 100 UNIT in 0.9%NACL 100ML 99 ML IV PRN ×2 (14:21)
[2022-11-25] MEDS: FENTANYL 2500MCG+NS 250ML IV SCH (14:30)
[2022-11-25] MEDS ORDERED: MAGNESIUM HYDROXIDE 30 ML/UDCUP PO ONE (17:00)
[2022-11-25] MEDS ORDERED: BISACODYL 10 MG SUPP.RECT RC PRN (17:00)
[2022-11-25] MEDS: MAGNESIUM HYDROXIDE 30 ML/UDCUP PO SCH (21:00)
[2022-11-25] MEDS: ATORVASTATIN 40 MG TABLET PO SCH (21:00)
[2022-11-25 21:32] LABS: INR 1.03 (0.85-1.15); PROTHROMBIN TIME 11.9 SEC (9.6-11.6)
[2022-11-25 21:33] LABS: PARTIAL THROMBOPLASTIN TIME 28.7 SEC (26.3-35.5)
[2022-11-25] MEDS: PANTOPRAZOLE 40MG INJ 80 MG in 0.9%NACL 100ML 100 ML IVP SCH (21:34)
[2022-11-25] MEDS: FAMOTIDINE 20MG VIAL IV SCH (21:42)
[2022-11-25] MEDS: ARTIFICIAL TEARS 3.5 GM OINTMENT OU SCH (21:43)
[2022-11-26] VITALS (53 sets, daily range): BP systolic 96–181; BP diastolic 55–105; PULSE 55–68; RESP 13–24; O2SAT 94–100
[2022-11-26] MEDS: FUROSEMIDE 100MG VIAL 100 MG in 0.9%NACL 100ML 100 ML IV SCH ×2 (00:25→16:12)
[2022-11-26] MEDS: INSULIN REGULAR, HUMAN 3ML 100 UNIT in 0.9%NACL 100ML 99 ML IV PRN ×2 (00:27)
[2022-11-26] MEDS: PROPOFOL 1000 MG/100 ML 100 ML IV SCH ×5 (02:57→18:22)
[2022-11-26 03:58] LABS: BASOPHILS # (AUTO) 0.01 K/uL (0.00-0.20); BASOPHILS % (AUTO) 0.1 % (0.0-5.0); EOSINOPHILS # (AUTO) 0.01 K/uL (0.00-0.70); EOSINOPHILS % (AUTO) 0.1 % (0.0-8.0); HEMATOCRIT 34.1 % (42-54); IMMATURE GRANULOCYTE ABSOLUTE 0.09 K/uL (0-1); LYMPHOCYTES # (AUTO) 0.9 K/uL (1.0-4.8); LYMPHOCYTES % (AUTO) 5.3 % (21.0-51.0); MEAN CORPUSCULAR HEMOGLOBIN 27.3 pg (27.0-33.0); MEAN CORPUSCULAR HGB CONC 32.8 g/dL (32.0-36.0); MEAN CORPUSCULAR VOLUME 83.2 fL (79-99); MONOCYTES # (AUTO) 1.3 K/uL (0.1-1.0); MONOCYTES % (AUTO) 7.9 % (3.0-13.0); NEUTROPHILS # (AUTO) 14.5 K/uL (1.8-7.7); NEUTROPHILS % (AUTO) 86.1 % (40.0-77.0); PLATELET COUNT (AUTO) 219 K/uL (130-400); RED CELL DISTRIBUTION WIDTH 14.1 % (11.0-15.5); WHITE BLOOD COUNT (AUTO) 16.9 K/uL (4.8-10.8)
[2022-11-26] MEDS: CHLORHEXIDINE GLUCONATE 15 ML MOUTHWASH MM SCH ×3 (04:13→17:05)
[2022-11-26 04:17] LABS: ALBUMIN 1.8 g/dL (3.5-5.0); BILIRUBIN,TOTAL 0.5 mg/dL (0.2-1.0); CREATININE 2.4 mg/dL (0.5-1.5); PHOSPHORUS 7.1 mg/dL (2.5-4.9); TOTAL PROTEIN, SERUM 5.5 g/dL (6.0-8.3)
[2022-11-26 04:23] LABS: POTASSIUM 2.9 mmol/L (3.5-5.1)
[2022-11-26] MEDS ORDERED: POTASSIUM CHLORIDE 10MEQ/100ML 100 ML IV ONE (05:15)
[2022-11-26] MEDS ORDERED: POTASSIUM CHLORIDE 10MEQ/100ML IV ONE (05:30)
[2022-11-26] MEDS: PANTOPRAZOLE 40MG INJ 80 MG in 0.9%NACL 100ML 100 ML IVP SCH ×2 (05:45→17:08)
[2022-11-26] MEDS: ALBUTEROL 0.083% 2.5 MG/3 ML INH IH SCH ×4 (06:35→23:11)
[2022-11-26] MEDS: BUDESONIDE 0.5 MG/2 ML INH IH SCH ×2 (06:35→18:22)
[2022-11-26] MEDS: IPRATROPIUM 0.5 MG/2.5 ML INH IH SCH ×4 (06:35→23:11)
[2022-11-26 07:42] LABS: ABG BASE EXCESS 10.8 mmol/L (-2.0-3.0); ABG OXYGEN SATURATION 93.5 % (95.0-99.0); ABG PCO2 40 mmHg (35-48); ABG PH 7.551 (7.35-7.450); CARBON MONOXIDE 0.3; DEVICE COMMENT RR, EDDIE,RN; HHb 6.5; PO2, ARTERIAL BG 64.4 mmHg (83.0-108.0); VENT MODE, BG AC (ROOM AIR)
[2022-11-26] MEDS: FENTANYL 2500MCG+NS 250ML IV SCH (07:51)
[2022-11-26] MEDS: SOLU-MEDROL 40MG VIAL IVP SCH ×2 (08:25→21:13)
[2022-11-26] MEDS: LEVOTHYROXINE 100MCG VIAL IV SCH (08:25)
[2022-11-26] MEDS: INSULIN GLARGINE 100 UNITS/ML 10 ML VIAL SQ SCH ×2 (08:26→21:19)
[2022-11-26] MEDS: HYDRALAZINE 20MG/ML VIAL IV PRN (08:43)
[2022-11-26] MEDS: MAGNESIUM HYDROXIDE 30 ML/UDCUP PO SCH ×2 (08:55→21:00)
[2022-11-26] MEDS: ASPIRIN 81MG CHEW TAB PO SCH (09:00)
[2022-11-26] MEDS: MEROPENEM 500 MG in 0.9%NACL 100ML 100 ML IV SCH ×2 (09:07→21:20)
[2022-11-26] MEDS: FLUCONAZOLE 100 MG TAB PO SCH (09:12)
[2022-11-26] MEDS: METOLAZONE 2.5 MG TABLET PO SCH (09:12)
[2022-11-26] MEDS: DOXYCYCLINE HYCLATE 100 MG TABLET PO SCH ×2 (09:12→21:16)
[2022-11-26] MEDS: POTASSIUM CHLORIDE 10% ELIXIR 20 MEQ/15 ML UDCUP PO PRN ×3 (10:12→16:45)
[2022-11-26] MEDS: AMLODIPINE 5 MG TAB PO SCH (10:13)
[2022-11-26] MEDS: CARVEDILOL 25 MG TABLET PO SCH ×2 (10:13→21:15)
[2022-11-26] MEDS ORDERED: NICARDIPINE 100 MG in 0.9%NACL 100ML IV SCH (12:00)
[2022-11-26] MEDS: POTASSIUM CHLORIDE 20MEQ/100ML 100 ML IV PRN ×2 (12:25→20:51)
[2022-11-26] MEDS: HYDRALAZINE 25MG TABLET PO SCH ×2 (13:56→21:16)
[2022-11-26] MEDS ORDERED: PEG 3350/NA SULF,BICARB,CL/KCL 4000 ML SOLN PO ONE (18:00)
[2022-11-26] MEDS: ATORVASTATIN 40 MG TABLET PO SCH (21:15)
[2022-11-26] MEDS: FAMOTIDINE 20MG VIAL IV SCH (21:16)
[2022-11-26] MEDS: ARTIFICIAL TEARS 3.5 GM OINTMENT OU SCH (21:17)
[2022-11-26 23:14] LABS: MAGNESIUM 2.6 mg/dL (1.80-2.40); POTASSIUM 3.7 mmol/L (3.5-5.1)
[2022-11-27] VITALS (163 sets, daily range): BP systolic 89–197; BP diastolic 54–119; PULSE 39–85; RESP 7–40; O2SAT 96–100
[2022-11-27] MEDS: BALSAM PERU/CASTOR OIL 60 GM TUBE TP SCH ×3 (00:09→21:13)
[2022-11-27] MEDS: PROPOFOL 1000 MG/100 ML 100 ML IV SCH ×2 (00:44→09:24)
[2022-11-27] MEDS: FENTANYL 2500MCG+NS 250ML IV SCH (00:45)
[2022-11-27] MEDS: POTASSIUM CHLORIDE 20MEQ/100ML 100 ML IV PRN (02:44)
[2022-11-27] MEDS: CHLORHEXIDINE GLUCONATE 15 ML MOUTHWASH MM SCH ×5 (02:45→23:49)
[2022-11-27] MEDS: PANTOPRAZOLE 40MG INJ 80 MG in 0.9%NACL 100ML 100 ML IVP SCH ×2 (04:22→10:29)
[2022-11-27 04:51] LABS: HEMATOCRIT 38.4 % (42-54); MEAN CORPUSCULAR HEMOGLOBIN 27.3 pg (27.0-33.0); MEAN CORPUSCULAR HGB CONC 33.1 g/dL (32.0-36.0); MEAN CORPUSCULAR VOLUME 82.6 fL (79-99); RED BLOOD CELL COUNT(AUTO) 4.65 MIL/uL (4.50-6.20); RED CELL DISTRIBUTION WIDTH 14.3 % (11.0-15.5); WHITE BLOOD COUNT (AUTO) 18.9 K/uL (4.8-10.8)
[2022-11-27 05:04] LABS: INR 1.03 (0.85-1.15); PROTHROMBIN TIME 11.9 SEC (9.6-11.6)
[2022-11-27 05:05] LABS: PARTIAL THROMBOPLASTIN TIME 27.6 SEC (26.3-35.5)
[2022-11-27 05:14] LABS: MAGNESIUM 2.5 mg/dL (1.80-2.40); POTASSIUM 3.9 mmol/L (3.5-5.1)
[2022-11-27] MEDS: IPRATROPIUM 0.5 MG/2.5 ML INH IH SCH ×4 (06:20→23:06)
[2022-11-27] MEDS: ALBUTEROL 0.083% 2.5 MG/3 ML INH IH SCH ×4 (06:20→23:06)
[2022-11-27] MEDS: BUDESONIDE 0.5 MG/2 ML INH IH SCH ×2 (06:20→18:14)
[2022-11-27] MEDS: DOXYCYCLINE HYCLATE 100 MG TABLET PO SCH ×2 (08:53→21:07)
[2022-11-27] MEDS: HYDRALAZINE 25MG TABLET PO SCH ×3 (08:53→21:07)
[2022-11-27] MEDS: INSULIN GLARGINE 100 UNITS/ML 10 ML VIAL SQ SCH ×2 (08:54→21:10)
[2022-11-27] MEDS: ASPIRIN 81MG CHEW TAB PO SCH (08:58)
[2022-11-27] MEDS: SOLU-MEDROL 40MG VIAL IVP SCH ×2 (08:58→21:07)
[2022-11-27] MEDS: FLUCONAZOLE 100 MG TAB PO SCH (08:59)
[2022-11-27] MEDS: METOLAZONE 2.5 MG TABLET PO SCH (09:00)
[2022-11-27] MEDS: MAGNESIUM HYDROXIDE 30 ML/UDCUP PO SCH ×2 (09:00→21:06)
[2022-11-27] MEDS: AMLODIPINE 5 MG TAB PO SCH (09:00)
[2022-11-27] MEDS: LEVOTHYROXINE 100MCG VIAL IV SCH (09:01)
[2022-11-27] MEDS: CARVEDILOL 25 MG TABLET PO SCH ×2 (10:22→21:08)
[2022-11-27] MEDS: MEROPENEM 500 MG in 0.9%NACL 100ML 100 ML IV SCH ×2 (10:22→23:49)
[2022-11-27] MEDS ORDERED: KETAMINE 50MG/ML SYRINGE 50 MG/ML DISP.SYRIN ONE (12:05)
[2022-11-27] MEDS ORDERED: ROCURONIUM 10MG/1ML SYR 10 MG/ML ML ONE (12:05)
[2022-11-27] MEDS ORDERED: PROPOFOL 10 MG/ML 20ML VIAL IV ONE (12:05)
[2022-11-27] MEDS ORDERED: NICARDIPINE 25MG INJ 100 MG in 0.9%NACL 100ML 60 ML IV SCH (12:30)
[2022-11-27 14:57] LABS: ABG BASE EXCESS 14.5 mmol/L (-2.0-3.0); ABG HCO3 37.2 mmol/L (21.0-28.0); ABG OXYGEN SATURATION 93.9 % (95.0-99.0); ABG PCO2 39 mmHg (35-48); ABG PH 7.602 (7.35-7.450); CPAP, BG 0 cm H2O; DEVICE COMMENT MILTON RN RR; PO2, ARTERIAL BG 57.8 mmHg (83.0-108.0); VENT MODE, BG CPAP PS 0 (ROOM AIR)
[2022-11-27] MEDS: HYDROCORTISONE 25 MG SUPPOSITORY PR SCH ×2 (16:36→21:10)
[2022-11-27] MEDS: ATORVASTATIN 40 MG TABLET PO SCH (21:07)
[2022-11-27] MEDS: FAMOTIDINE 20MG VIAL IV SCH (21:11)
[2022-11-27] MEDS: ARTIFICIAL TEARS 3.5 GM OINTMENT OU SCH (21:13)
[2022-11-27 23:17] LABS: MAGNESIUM 2.5 mg/dL (1.80-2.40); POTASSIUM 3.5 mmol/L (3.5-5.1)
[2022-11-27] MEDS: POTASSIUM CHLORIDE 10% ELIXIR 20 MEQ/15 ML UDCUP PO PRN (23:48)
[2022-11-28] VITALS (64 sets, daily range): BP systolic 120–169; BP diastolic 70–110; PULSE 54–77; RESP 11–29; O2SAT 92–97
[2022-11-28] MEDS: POTASSIUM CHLORIDE 10% ELIXIR 20 MEQ/15 ML UDCUP PO PRN (02:42)
[2022-11-28] MEDS: CHLORHEXIDINE GLUCONATE 15 ML MOUTHWASH MM SCH ×4 (04:30→22:30)
[2022-11-28] MEDS: ALBUTEROL 0.083% 2.5 MG/3 ML INH IH SCH ×4 (06:26→23:58)
[2022-11-28] MEDS: BUDESONIDE 0.5 MG/2 ML INH IH SCH ×2 (06:26→18:15)
[2022-11-28] MEDS: IPRATROPIUM 0.5 MG/2.5 ML INH IH SCH ×4 (06:26→23:58)
[2022-11-28] MEDS: INSULIN REGULAR, HUMAN 3ML 100 UNIT in 0.9%NACL 100ML 99 ML IV PRN ×2 (07:46)
[2022-11-28 08:30] LABS: BASOPHILS # (AUTO) 0.02 K/uL (0.00-0.20); BASOPHILS % (AUTO) 0.1 % (0.0-5.0); HEMATOCRIT 37.2 % (42-54); IMMATURE GRANULOCYTE ABSOLUTE 0.16 K/uL (0-1); LYMPHOCYTES # (AUTO) 1.2 K/uL (1.0-4.8); LYMPHOCYTES % (AUTO) 6.2 % (21.0-51.0); MEAN CORPUSCULAR HEMOGLOBIN 27.5 pg (27.0-33.0); MEAN CORPUSCULAR HGB CONC 32.5 g/dL (32.0-36.0); MEAN CORPUSCULAR VOLUME 84.5 fL (79-99); MONOCYTES # (AUTO) 1.2 K/uL (0.1-1.0); MONOCYTES % (AUTO) 6.1 % (3.0-13.0); NEUTROPHILS # (AUTO) 17.3 K/uL (1.8-7.7); NEUTROPHILS % (AUTO) 86.8 % (40.0-77.0); PLATELET COUNT (AUTO) 221 K/uL (130-400); WHITE BLOOD COUNT (AUTO) 19.9 K/uL (4.8-10.8)
[2022-11-28 08:41] LABS: CREATININE 1.7 mg/dL (0.5-1.5); MAGNESIUM 2.7 mg/dL (1.80-2.40); POTASSIUM 3.7 mmol/L (3.5-5.1)
[2022-11-28] MEDS: METOLAZONE 2.5 MG TABLET PO SCH (09:32)
[2022-11-28] MEDS: DOXYCYCLINE HYCLATE 100 MG TABLET PO SCH ×2 (09:33→21:01)
[2022-11-28] MEDS: FLUCONAZOLE 100 MG TAB PO SCH (09:33)
[2022-11-28] MEDS: ASPIRIN 81MG CHEW TAB PO SCH (09:33)
[2022-11-28] MEDS: LEVOTHYROXINE 100MCG VIAL IV SCH (09:34)
[2022-11-28] MEDS: AMLODIPINE 5 MG TAB PO SCH (09:35)
[2022-11-28] MEDS: HYDRALAZINE 25MG TABLET PO SCH ×3 (09:35→21:10)
[2022-11-28] MEDS: MAGNESIUM HYDROXIDE 30 ML/UDCUP PO SCH ×2 (09:35→21:02)
[2022-11-28] MEDS: HYDROCORTISONE 25 MG SUPPOSITORY PR SCH ×2 (09:36→22:14)
[2022-11-28] MEDS: INSULIN GLARGINE 100 UNITS/ML 10 ML VIAL SQ SCH ×2 (09:37→21:03)
[2022-11-28] MEDS: BALSAM PERU/CASTOR OIL 60 GM TUBE TP SCH ×2 (09:41→21:14)
[2022-11-28] MEDS: CARVEDILOL 25 MG TABLET PO SCH ×2 (09:41→21:11)
[2022-11-28] MEDS: SOLU-MEDROL 40MG VIAL IVP SCH ×2 (09:42→21:09)
[2022-11-28] MEDS: INSULIN HUMULIN R 100 UNIT/ML 3ML SQ SCH ×3 (11:30→21:09)
[2022-11-28] MEDS: MEROPENEM 500 MG in 0.9%NACL 100ML 100 ML IV SCH ×2 (12:05→22:14)
[2022-11-28] MEDS ORDERED: TAMSULOSIN HCL 0.4 MG CAP.ER.24H PO ONE (16:00)
[2022-11-28] MEDS: ARTIFICIAL TEARS 3.5 GM OINTMENT OU SCH (21:00)
[2022-11-28] MEDS: FAMOTIDINE 20MG VIAL IV SCH (21:01)
[2022-11-28] MEDS: ATORVASTATIN 40 MG TABLET PO SCH (21:01)
[2022-11-29] VITALS (25 sets, daily range): BP systolic 103–163; BP diastolic 46–99; PULSE 57–80; RESP 13–134; O2SAT 94–98
[2022-11-29] MEDS: CHLORHEXIDINE GLUCONATE 15 ML MOUTHWASH MM SCH (03:57)
[2022-11-29] MEDS: BUDESONIDE 0.5 MG/2 ML INH IH SCH ×2 (06:13→18:43)
[2022-11-29] MEDS: ALBUTEROL 0.083% 2.5 MG/3 ML INH IH SCH ×4 (06:13→22:59)
[2022-11-29] MEDS: IPRATROPIUM 0.5 MG/2.5 ML INH IH SCH ×4 (06:14→22:59)
[2022-11-29] MEDS: INSULIN HUMULIN R 100 UNIT/ML 3ML SQ SCH ×4 (07:07→20:42)
[2022-11-29 07:32] LABS: HEMATOCRIT 36.9 % (42-54); MEAN CORPUSCULAR HEMOGLOBIN 26.9 pg (27.0-33.0); MEAN CORPUSCULAR HGB CONC 32.5 g/dL (32.0-36.0); MEAN CORPUSCULAR VOLUME 82.7 fL (79-99); PLATELET COUNT (AUTO) 243 K/uL (130-400); RED BLOOD CELL COUNT(AUTO) 4.46 MIL/uL (4.50-6.20); RED CELL DISTRIBUTION WIDTH 13.8 % (11.0-15.5); WHITE BLOOD COUNT (AUTO) 19.9 K/uL (4.8-10.8)
[2022-11-29 07:52] LABS: CREATININE 1.4 mg/dL (0.5-1.5); MAGNESIUM 2.9 mg/dL (1.80-2.40); POTASSIUM 4.1 mmol/L (3.5-5.1); TOTAL PROTEIN, SERUM 5.7 g/dL (6.0-8.3)
[2022-11-29 08:14] LABS: BAND NEUTROPHILS % (MANUAL) 1 % (0-2); LYMPHOCYTES % (MANUAL) 6 % (22-44); MAN.DIFF COMMENT-IMPRESSION MANUAL DIFFERENTIAL; MONOCYTES % (MANUAL) 3 % (2-9); PLATELET MORPHOLOGY COMMENT ADEQUATE; SEGMENTED NEUTROPHILS % 90 % (40-70); TOTAL CELLS COUNTED 100; WBC MORPHOLOGY CONSISTENT W/DIFF
[2022-11-29] MEDS: SOLU-MEDROL 40MG VIAL IVP SCH (08:46)
[2022-11-29] MEDS: LEVOTHYROXINE 100MCG VIAL IV SCH (08:46)
[2022-11-29] MEDS: HYDRALAZINE 25MG TABLET PO SCH ×3 (08:47→20:31)
[2022-11-29] MEDS: FLUCONAZOLE 100 MG TAB PO SCH (08:48)
[2022-11-29] MEDS: TAMSULOSIN HCL 0.4 MG CAP.ER.24H PO SCH (08:48)
[2022-11-29] MEDS: DOXYCYCLINE HYCLATE 100 MG TABLET PO SCH ×2 (08:48→20:36)
[2022-11-29] MEDS: ASPIRIN 81MG CHEW TAB PO SCH (08:48)
[2022-11-29] MEDS: MAGNESIUM HYDROXIDE 30 ML/UDCUP PO SCH ×2 (08:48→20:32)
[2022-11-29] MEDS: CARVEDILOL 25 MG TABLET PO SCH ×2 (08:49→20:43)
[2022-11-29] MEDS: HYDROCORTISONE 25 MG SUPPOSITORY PR SCH ×2 (08:50→21:10)
[2022-11-29] MEDS: AMLODIPINE 5 MG TAB PO SCH (08:50)
[2022-11-29] MEDS: BALSAM PERU/CASTOR OIL 60 GM TUBE TP SCH ×2 (08:50→20:41)
[2022-11-29] MEDS: INSULIN GLARGINE 100 UNITS/ML 10 ML VIAL SQ SCH (08:52)
[2022-11-29] MEDS: LOSARTAN 25 MG TABLET PO SCH ×2 (10:39→20:31)
[2022-11-29] MEDS ORDERED: INSULIN HUMULIN R 100 UNIT/ML 3ML SQ SCH (17:00)
[2022-11-29] MEDS: ARTIFICIAL TEARS 3.5 GM OINTMENT OU SCH (20:36)
[2022-11-29] MEDS: FAMOTIDINE 20MG TAB PO SCH (20:36)
[2022-11-29] MEDS: ATORVASTATIN 40 MG TABLET PO SCH (20:37)
[2022-11-29] MEDS ORDERED: INSULIN GLARGINE 100 UNITS/ML 10 ML VIAL SQ SCH (21:00)
[2022-11-29] MEDS ORDERED: PHARMACY COMMUNICATION MISC SCH ×2 (21:00)
[2022-11-30] VITALS (17 sets, daily range): BP systolic 102–145; BP diastolic 54–83; PULSE 56–73; RESP 17–21; O2SAT 95–100
[2022-11-30 03:39] LABS: BASOPHILS # (AUTO) 0.03 K/uL (0.00-0.20); BASOPHILS % (AUTO) 0.1 % (0.0-5.0); EOSINOPHILS # (AUTO) 0.24 K/uL (0.00-0.70); HEMATOCRIT 34.6 % (42-54); IMMATURE GRANULOCYTE ABSOLUTE 0.22 K/uL (0-1); LYMPHOCYTES # (AUTO) 3.1 K/uL (1.0-4.8); LYMPHOCYTES % (AUTO) 12.5 % (21.0-51.0); MEAN CORPUSCULAR HEMOGLOBIN 27.1 pg (27.0-33.0); MEAN CORPUSCULAR HGB CONC 32.9 g/dL (32.0-36.0); MEAN CORPUSCULAR VOLUME 82.4 fL (79-99); MONOCYTES # (AUTO) 1.9 K/uL (0.1-1.0); MONOCYTES % (AUTO) 7.6 % (3.0-13.0); NEUTROPHILS # (AUTO) 19.1 K/uL (1.8-7.7); NEUTROPHILS % (AUTO) 77.9 % (40.0-77.0); PLATELET COUNT (AUTO) 233 K/uL (130-400); RED CELL DISTRIBUTION WIDTH 13.8 % (11.0-15.5); WHITE BLOOD COUNT (AUTO) 24.6 K/uL (4.8-10.8)
[2022-11-30 03:52] LABS: CREATININE 1.2 mg/dL (0.5-1.5); POTASSIUM 3.5 mmol/L (3.5-5.1)
[2022-11-30] MEDS: INSULIN HUMULIN R 100 UNIT/ML 3ML SQ SCH ×7 (06:01→20:23)
[2022-11-30] MEDS: IPRATROPIUM 0.5 MG/2.5 ML INH IH SCH ×4 (06:25→23:09)
[2022-11-30] MEDS: BUDESONIDE 0.5 MG/2 ML INH IH SCH ×2 (06:25→18:18)
[2022-11-30] MEDS: ALBUTEROL 0.083% 2.5 MG/3 ML INH IH SCH ×4 (06:26→23:09)
[2022-11-30] MEDS: INSULIN GLARGINE 100 UNITS/ML 10 ML VIAL SQ SCH ×2 (09:58→20:26)
[2022-11-30] MEDS: MAGNESIUM HYDROXIDE 30 ML/UDCUP PO SCH ×2 (10:02→19:18)
[2022-11-30] MEDS: HYDRALAZINE 25MG TABLET PO SCH ×3 (10:03→20:22)
[2022-11-30] MEDS: DOXYCYCLINE HYCLATE 100 MG TABLET PO SCH ×2 (10:03→20:22)
[2022-11-30] MEDS: SOLU-MEDROL 40MG VIAL IVP SCH (10:03)
[2022-11-30] MEDS: ASPIRIN 81MG CHEW TAB PO SCH (10:03)
[2022-11-30] MEDS: FLUCONAZOLE 100 MG TAB PO SCH (10:04)
[2022-11-30] MEDS: TAMSULOSIN HCL 0.4 MG CAP.ER.24H PO SCH (10:04)
[2022-11-30] MEDS: LOSARTAN 25 MG TABLET PO SCH ×2 (10:04→20:22)
[2022-11-30] MEDS: HYDROCORTISONE 25 MG SUPPOSITORY PR SCH ×2 (10:04→20:22)
[2022-11-30] MEDS: FAMOTIDINE 20MG TAB PO SCH ×2 (10:04→20:21)
[2022-11-30] MEDS: CARVEDILOL 25 MG TABLET PO SCH ×2 (10:04→20:28)
[2022-11-30] MEDS: AMLODIPINE 5 MG TAB PO SCH (10:04)
[2022-11-30] MEDS: BALSAM PERU/CASTOR OIL 60 GM TUBE TP SCH ×2 (10:15→20:29)
[2022-11-30] MEDS: KCL 20 MEQ ERTAB PO PRN ×2 (11:31→18:09)
[2022-11-30] MEDS: ATORVASTATIN 40 MG TABLET PO SCH (20:22)
[2022-11-30] MEDS: ARTIFICIAL TEARS 3.5 GM OINTMENT OU SCH (20:30)
[2022-12-01] VITALS (12 sets, daily range): BP systolic 105–129; BP diastolic 66–75; PULSE 61–68; RESP 18–20; O2SAT 100
[2022-12-01 04:59] LABS: BASOPHILS # (AUTO) 0.03 K/uL (0.00-0.20); BASOPHILS % (AUTO) 0.1 % (0.0-5.0); EOSINOPHILS # (AUTO) 0.31 K/uL (0.00-0.70); EOSINOPHILS % (AUTO) 1.3 % (0.0-8.0); HEMATOCRIT 34.1 % (42-54); IMMATURE GRANULOCYTE ABSOLUTE 0.23 K/uL (0-1); LYMPHOCYTES # (AUTO) 2.8 K/uL (1.0-4.8); LYMPHOCYTES % (AUTO) 12.1 % (21.0-51.0); MEAN CORPUSCULAR HEMOGLOBIN 27.4 pg (27.0-33.0); MEAN CORPUSCULAR VOLUME 80.4 fL (79-99); MONOCYTES # (AUTO) 1.8 K/uL (0.1-1.0); MONOCYTES % (AUTO) 7.5 % (3.0-13.0); NEUTROPHILS # (AUTO) 18.3 K/uL (1.8-7.7); PLATELET COUNT (AUTO) 246 K/uL (130-400); RED BLOOD CELL COUNT(AUTO) 4.24 MIL/uL (4.50-6.20); RED CELL DISTRIBUTION WIDTH 13.7 % (11.0-15.5); WHITE BLOOD COUNT (AUTO) 23.4 K/uL (4.8-10.8)
[2022-12-01 05:16] LABS: POTASSIUM 3.7 mmol/L (3.5-5.1)
[2022-12-01] MEDS: INSULIN HUMULIN R 100 UNIT/ML 3ML SQ SCH ×7 (05:34→21:00)
[2022-12-01] MEDS: LEVOTHYROXINE 100 MCG TABLET PO SCH (05:44)
[2022-12-01] MEDS: ALBUTEROL 0.083% 2.5 MG/3 ML INH IH SCH ×4 (06:19→22:59)
[2022-12-01] MEDS: BUDESONIDE 0.5 MG/2 ML INH IH SCH ×2 (06:19→18:26)
[2022-12-01] MEDS: IPRATROPIUM 0.5 MG/2.5 ML INH IH SCH ×4 (06:19→22:59)
[2022-12-01] MEDS: INSULIN GLARGINE 100 UNITS/ML 10 ML VIAL SQ SCH ×2 (09:12→22:19)
[2022-12-01] MEDS: SOLU-MEDROL 40MG VIAL IVP SCH (09:15)
[2022-12-01] MEDS: HYDRALAZINE 25MG TABLET PO SCH ×3 (09:18→22:11)
[2022-12-01] MEDS: TAMSULOSIN HCL 0.4 MG CAP.ER.24H PO SCH (09:18)
[2022-12-01] MEDS: AMLODIPINE 5 MG TAB PO SCH (09:18)
[2022-12-01] MEDS: ASPIRIN 81MG CHEW TAB PO SCH (09:19)
[2022-12-01] MEDS: DOXYCYCLINE HYCLATE 100 MG TABLET PO SCH ×2 (09:19→22:13)
[2022-12-01] MEDS: LOSARTAN 25 MG TABLET PO SCH ×2 (09:20→22:13)
[2022-12-01] MEDS: FLUCONAZOLE 100 MG TAB PO SCH (09:20)
[2022-12-01] MEDS: CARVEDILOL 25 MG TABLET PO SCH ×2 (09:20→22:13)
[2022-12-01] MEDS: FAMOTIDINE 20MG TAB PO SCH ×2 (09:21→22:13)
[2022-12-01] MEDS: BALSAM PERU/CASTOR OIL 60 GM TUBE TP SCH ×2 (09:22→22:19)
[2022-12-01] MEDS: MAGNESIUM HYDROXIDE 30 ML/UDCUP PO SCH ×2 (09:24→21:00)
[2022-12-01] MEDS: HYDROCORTISONE 25 MG SUPPOSITORY PR SCH ×2 (09:25→22:15)
[2022-12-01] MEDS: ATORVASTATIN 40 MG TABLET PO SCH (22:20)
[2022-12-01] MEDS: ARTIFICIAL TEARS 3.5 GM OINTMENT OU SCH (22:20)
[2022-12-02] VITALS (17 sets, daily range): BP systolic 94–124; BP diastolic 57–76; PULSE 53–70; RESP 16–31; O2SAT 97–100
[2022-12-02] MEDS: ZOLPIDEM TARTRATE 5 MG TAB PO PRN (01:34)
[2022-12-02] MEDS: ALPRAZOLAM 0.5 MG TABLET PO PRN (03:28)
[2022-12-02 04:18] LABS: BASOPHILS # (AUTO) 0.03 K/uL (0.00-0.20); BASOPHILS % (AUTO) 0.1 % (0.0-5.0); EOSINOPHILS # (AUTO) 0.26 K/uL (0.00-0.70); EOSINOPHILS % (AUTO) 1.2 % (0.0-8.0); HEMATOCRIT 34.2 % (42-54); IMMATURE GRANULOCYTE ABSOLUTE 0.22 K/uL (0-1); LYMPHOCYTES # (AUTO) 2.6 K/uL (1.0-4.8); LYMPHOCYTES % (AUTO) 11.7 % (21.0-51.0); MEAN CORPUSCULAR HEMOGLOBIN 27.4 pg (27.0-33.0); MEAN CORPUSCULAR VOLUME 82.8 fL (79-99); MONOCYTES # (AUTO) 1.7 K/uL (0.1-1.0); MONOCYTES % (AUTO) 7.4 % (3.0-13.0); NEUTROPHILS # (AUTO) 17.6 K/uL (1.8-7.7); NEUTROPHILS % (AUTO) 78.6 % (40.0-77.0); PLATELET COUNT (AUTO) 248 K/uL (130-400); RED BLOOD CELL COUNT(AUTO) 4.13 MIL/uL (4.50-6.20); RED CELL DISTRIBUTION WIDTH 13.7 % (11.0-15.5); WHITE BLOOD COUNT (AUTO) 22.4 K/uL (4.8-10.8)
[2022-12-02 04:43] LABS: CREATININE 1.3 mg/dL (0.5-1.5); POTASSIUM 3.6 mmol/L (3.5-5.1)
[2022-12-02] MEDS: ALBUTEROL 0.083% 2.5 MG/3 ML INH IH SCH ×4 (06:07→23:04)
[2022-12-02] MEDS: BUDESONIDE 0.5 MG/2 ML INH IH SCH ×2 (06:08→18:25)
[2022-12-02] MEDS: IPRATROPIUM 0.5 MG/2.5 ML INH IH SCH ×4 (06:08→23:04)
[2022-12-02] MEDS: INSULIN HUMULIN R 100 UNIT/ML 3ML SQ SCH ×7 (06:21→20:59)
[2022-12-02] MEDS: LEVOTHYROXINE 100 MCG TABLET PO SCH (06:28)
[2022-12-02] MEDS: HYDROCORTISONE 25 MG SUPPOSITORY PR SCH ×2 (09:00→20:52)
[2022-12-02] MEDS: HYDRALAZINE 25MG TABLET PO SCH ×3 (09:08→20:56)
[2022-12-02] MEDS: DOXYCYCLINE HYCLATE 100 MG TABLET PO SCH ×2 (09:08→20:52)
[2022-12-02] MEDS: FAMOTIDINE 20MG TAB PO SCH ×2 (09:08→20:52)
[2022-12-02] MEDS: ASPIRIN 81MG CHEW TAB PO SCH (09:08)
[2022-12-02] MEDS: CARVEDILOL 25 MG TABLET PO SCH ×2 (09:09→21:03)
[2022-12-02] MEDS: LOSARTAN 25 MG TABLET PO SCH ×2 (09:09→20:52)
[2022-12-02] MEDS: TAMSULOSIN HCL 0.4 MG CAP.ER.24H PO SCH (09:09)
[2022-12-02] MEDS: SOLU-MEDROL 40MG VIAL IVP SCH (09:10)
[2022-12-02] MEDS: FLUCONAZOLE 100 MG TAB PO SCH (09:10)
[2022-12-02] MEDS: AMLODIPINE 5 MG TAB PO SCH (09:10)
[2022-12-02] MEDS: MAGNESIUM HYDROXIDE 30 ML/UDCUP PO SCH ×2 (09:10→20:53)
[2022-12-02] MEDS: INSULIN GLARGINE 100 UNITS/ML 10 ML VIAL SQ SCH ×2 (09:11→21:00)
[2022-12-02] MEDS: KCL 20 MEQ ERTAB PO PRN ×2 (11:04→18:46)
[2022-12-02] MEDS: BALSAM PERU/CASTOR OIL 60 GM TUBE TP SCH ×2 (11:07→21:01)
[2022-12-02] MEDS: ATORVASTATIN 40 MG TABLET PO SCH (20:52)
[2022-12-02] MEDS: ARTIFICIAL TEARS 3.5 GM OINTMENT OU SCH (20:55)
[2022-12-03] VITALS (9 sets, daily range): BP systolic 113–132; BP diastolic 72–90; PULSE 59–68; RESP 18–22; O2SAT 95–100
[2022-12-03] MEDS: INSULIN HUMULIN R 100 UNIT/ML 3ML SQ SCH ×4 (06:12→11:52)
[2022-12-03] MEDS: IPRATROPIUM 0.5 MG/2.5 ML INH IH SCH ×2 (06:26→10:57)
[2022-12-03] MEDS: BUDESONIDE 0.5 MG/2 ML INH IH SCH (06:26)
[2022-12-03] MEDS: ALBUTEROL 0.083% 2.5 MG/3 ML INH IH SCH ×2 (06:29→10:57)
[2022-12-03] MEDS: LEVOTHYROXINE 100 MCG TABLET PO SCH (06:42)
[2022-12-03] MEDS: FAMOTIDINE 20MG TAB PO SCH (10:02)
[2022-12-03] MEDS: INSULIN GLARGINE 100 UNITS/ML 10 ML VIAL SQ SCH (10:02)
[2022-12-03] MEDS: FLUCONAZOLE 100 MG TAB PO SCH (10:02)
[2022-12-03] MEDS: AMLODIPINE 5 MG TAB PO SCH (10:02)
[2022-12-03] MEDS: LOSARTAN 25 MG TABLET PO SCH (10:03)
[2022-12-03] MEDS: HYDRALAZINE 25MG TABLET PO SCH (10:03)
[2022-12-03] MEDS: ASPIRIN 81MG CHEW TAB PO SCH (10:03)
[2022-12-03] MEDS: CARVEDILOL 25 MG TABLET PO SCH (10:04)
[2022-12-03] MEDS: DOXYCYCLINE HYCLATE 100 MG TABLET PO SCH (10:05)
[2022-12-03] MEDS: SOLU-MEDROL 40MG VIAL IVP SCH (10:11)
[2022-12-03] MEDS: MAGNESIUM HYDROXIDE 30 ML/UDCUP PO SCH (10:11)
[2022-12-03] MEDS: TAMSULOSIN HCL 0.4 MG CAP.ER.24H PO SCH (10:11)
[2022-12-03] MEDS ORDERED: TAMS-1 PO (10:46)
[2022-12-03] MEDS ORDERED: LOSA25TA41 PO (10:46)
[2022-12-03] MEDS: BALSAM PERU/CASTOR OIL 60 GM TUBE TP SCH (11:38)
== END 2022-12-03 16:10 | disposition home health service (06) | DRG 130 ==
LOC: EDH 14:47 → EDHIP 14:48 → 2AH 20:58 → 2CH 11-17 13:18 → 4AH 11-29 12:30
PROVIDERS: ADMIT Internal Medicine; ATTEND Internal Medicine
PROC: 5A09357 Assistance with Respiratory Ventilation, Less than 24 Consecutive Hours, Continuous Positive Airway Pressure (ICD-10-PCS; 2022-11-16)
PROC: 0BH17EZ Insertion of Endotracheal Airway into Trachea, Via Natural or Artificial Opening (ICD-10-PCS; principal; 2022-11-17)
PROC: 5A1955Z Respiratory Ventilation, Greater than 96 Consecutive Hours (ICD-10-PCS; 2022-11-17)
PROC: 5A1D70Z Performance of Urinary Filtration, Intermittent, Less than 6 Hours Per Day (ICD-10-PCS; 2022-11-19)
PROC: 02HV33Z Insertion of Infusion Device into Superior Vena Cava, Percutaneous Approach (ICD-10-PCS; 2022-11-19)
PROC: B548ZZA Ultrasonography of Superior Vena Cava, Guidance (ICD-10-PCS; 2022-11-19)
PROC: 5A1D70Z Performance of Urinary Filtration, Intermittent, Less than 6 Hours Per Day (ICD-10-PCS; 2022-11-20)
PROC: 5A1D70Z Performance of Urinary Filtration, Intermittent, Less than 6 Hours Per Day (ICD-10-PCS; 2022-11-21)
PROC: 5A1D70Z Performance of Urinary Filtration, Intermittent, Less than 6 Hours Per Day (ICD-10-PCS; 2022-11-23)
PROC: 0DJD8ZZ Inspection of Lower Intestinal Tract, Via Natural or Artificial Opening Endoscopic (ICD-10-PCS; 2022-11-27)
DX: J10.08 Influenza due to other identified influenza virus with other specified pneumonia (principal); N17.0 Acute kidney failure with tubular necrosis; I50.33 Acute on chronic diastolic (congestive) heart failure; I21.A1 Myocardial infarction type 2; E43 Unspecified severe protein-calorie malnutrition; E87.4 Mixed disorder of acid-base balance; R65.10 Systemic inflammatory response syndrome (SIRS) of non-infectious origin without acute organ dysfunction; J45.51 Severe persistent asthma with (acute) exacerbation; L89.153 Pressure ulcer of sacral region, stage 3; L89.323 Pressure ulcer of left buttock, stage 3; L89.313 Pressure ulcer of right buttock, stage 3; J80 Acute respiratory distress syndrome; I13.0 Hypertensive heart and chronic kidney disease with heart failure and stage 1 through stage 4 chronic kidney disease, or unspecified chronic kidney disease; K92.1 Melena; E11.22 Type 2 diabetes mellitus with diabetic chronic kidney disease; E11.65 Type 2 diabetes mellitus with hyperglycemia; E87.6 Hypokalemia; G47.33 Obstructive sleep apnea (adult) (pediatric); E66.01 Morbid (severe) obesity due to excess calories; E83.42 Hypomagnesemia; Z68.41 Body mass index [BMI] 40.0-44.9, adult; N18.30 Chronic kidney disease, stage 3 unspecified; R33.9 Retention of urine, unspecified; K64.9 Unspecified hemorrhoids; J40 Bronchitis, not specified as acute or chronic; E78.00 Pure hypercholesterolemia, unspecified; E89.0 Postprocedural hypothyroidism; I25.2 Old myocardial infarction; Z56.0 Unemployment, unspecified; Z68.42 Body mass index [BMI] 45.0-49.9, adult; Z75.3 Unavailability and inaccessibility of health-care facilities; Z79.4 Long term (current) use of insulin; Z79.82 Long term (current) use of aspirin; Z79.899 Other long term (current) drug therapy; Z99.2 Dependence on renal dialysis
CPT/HCPCS: 31500; 36415; 36600; 45378; 71045; 71250; 76705; 76770; 80048; 80053; 80061; 81001; 82040; 82270; 82306; 82330; 82435; 82550; 82570; 82803; 82947; 82948; 83036; 83540; 83550; 83605; 83690; 83735; 83874; 83880; 84100; 84132; 84145; 84295; 84300; 84439; 84443; 84481; 84484; 85014; 85018; 85025; 85027; 85378; 85610; 85651; 85730; 86140; 86606; 86701; 86704; 86706; 86738; 86850; 86900; 86901; 87040; 87071; 87088; 87205; 87340; 87390; 87449; 87520; 87635; 87804; 90935; 93005; 93306; 93970; 93975; 94002; 94003; 94640; 94660; 94664; A4344; C1751; C1752; C1894; C9113; C9803; G0378; J0360; J0610; J0696; J1644; J1650; J1815; J1940; J2020; J2185; J2212; J2270; J2704; J2920; J2930; J2997; J3010; J3475; J3480; J3490; A4600; A9900

== ENCOUNTER 2022-12-09 12:17 | Emergency (ER) | payer MEDICAID ==
[~2022-12-09] VITALS: Ht 170.2 cm; Wt 113.4 kg
[~2022-12-09 12:17] MED LIST changes: +AMLO-258 PO; -AMLO10TA4 PO; -ATOR40TA69 PO; +ATOR40TA71 PO; +BUME1TAB6 PO; +CARV25TA PO; -CARV6.25 PO; -CLON0.2T PO; -ETOMIDATE 20MG VIAL IVP ONE; -FURO20TA6 PO; -INSU10VI3 SQ; +INSU500I SQ; +ISOS1POW MC; +LACT10SO76 PO; +LEVO200C2 PO; +LEVO50CA4 PO; -LISI40TA9 PO; +LOSA25TA41 PO; -ROCURONIUM BROMIDE 10MG/1ML 5ML VL IV ONE; +SEMA2PEN SQ; +TAMS-1 PO
[2022-12-09 12:54] LABS: BASOPHILS # (AUTO) 0.05 K/uL (0.00-0.20); BASOPHILS % (AUTO) 0.4 % (0.0-5.0); EOSINOPHILS % (AUTO) 1.8 % (0.0-8.0); HEMATOCRIT 33.9 % (42-54); IMMATURE GRANULOCYTE ABSOLUTE 0.06 K/uL (0-1); LYMPHOCYTES # (AUTO) 1.7 K/uL (1.0-4.8); LYMPHOCYTES % (AUTO) 15.1 % (21.0-51.0); MEAN CORPUSCULAR HEMOGLOBIN 28.3 pg (27.0-33.0); MEAN CORPUSCULAR HGB CONC 34.8 g/dL (32.0-36.0); MEAN CORPUSCULAR VOLUME 81.3 fL (79-99); MONOCYTES # (AUTO) 0.7 K/uL (0.1-1.0); MONOCYTES % (AUTO) 5.8 % (3.0-13.0); NEUTROPHILS # (AUTO) 8.5 K/uL (1.8-7.7); NEUTROPHILS % (AUTO) 76.4 % (40.0-77.0); PLATELET COUNT (AUTO) 206 K/uL (130-400); RED BLOOD CELL COUNT(AUTO) 4.17 MIL/uL (4.50-6.20); RED CELL DISTRIBUTION WIDTH 15.2 % (11.0-15.5); WHITE BLOOD COUNT (AUTO) 11.2 K/uL (4.8-10.8)
[2022-12-09] MEDS ORDERED: LACTATED RINGERS 500 ML 500 ML IV ONE (13:00)
[2022-12-09 13:07] LABS: ALBUMIN 2.5 g/dL (3.5-5.0); BILIRUBIN,TOTAL 0.8 mg/dL (0.2-1.0); CREATININE 1.8 mg/dL (0.5-1.5); MAGNESIUM 1.2 mg/dL (1.80-2.40); POTASSIUM 4.4 mmol/L (3.5-5.1); TOTAL PROTEIN, SERUM 6.3 g/dL (6.0-8.3)
[2022-12-09 13:32] LABS: B-TYPE NATRIURETIC PEPTIDE 419 pg/mL (0-100)
[2022-12-09 14:11] LABS: APPEARANCE,URINE CLEAR (CLEAR); BILIRUBIN,URINE NEGATIVE (NEGATIVE); GLUCOSE, URINE (UA) NEGATIVE (NEGATIVE); KETONES,URINE NEGATIVE (NEGATIVE); LEUKOCYTE ESTERASE ,URINE NEGATIVE Leu/uL (NEGATIVE); NITRATE,URINE NEGATIVE (NEGATIVE); OCCULT BLOOD,URINE NEGATIVE (NEGATIVE); PROTEIN,URINE 200 mg/dL (NEGATIVE); UROBILINOGEN,URINE 0.2 mg/dL (0.2-1.0)
[2022-12-09 14:12] LABS: ADD UA MICROSCOPIC YES; COLOR,URINE YELLOW (YELLOW)
[2022-12-09 14:13] LABS: MUCUS,URINE RARE LPF (None Seen); RBC,URINE 0-1 /HPF (0-1); WBC,URINE 0-1 /HPF (0-1)
[2022-12-09] MEDS ORDERED: MAGNESIUM 2GM PREMIX 50ML 50 ML IV SCH (16:30)
[2022-12-09 18:03] VITALS: BP 134/80; PULSE 74; RESP 16; O2SAT 97
== END 2022-12-09 18:36 | disposition home or self-care (01) ==
LOC: EDH 12:17
DX: I95.9 Hypotension, unspecified (principal); E86.9 Volume depletion, unspecified; R53.81 Other malaise; E11.9 Type 2 diabetes mellitus without complications; E78.00 Pure hypercholesterolemia, unspecified; I11.0 Hypertensive heart disease with heart failure; I50.9 Heart failure, unspecified; Z79.4 Long term (current) use of insulin; Z79.84 Long term (current) use of oral hypoglycemic drugs; Z79.890 Hormone replacement therapy; Z79.899 Other long term (current) drug therapy
CPT/HCPCS: 99285; 96374; 71045; 82550; 83735; 84484; 80053; 83880; 85025; 87040 ×2; 83605 ×2; 81001; 36415; 93005; 84145; J3475

== ENCOUNTER 2023-02-08 08:39 | Inpatient (IN) | payer MEDICAID ==
[~2023-02-08] VITALS: Ht 170.2 cm; Wt 122.3 kg
[~2023-02-08 08:39] MED LIST changes: +COLL30OI TP
[2023-02-08 10:06] LABS: APPEARANCE,URINE CLEAR (CLEAR); BILIRUBIN,URINE NEGATIVE (NEGATIVE); COLOR,URINE LIGHT-YELLOW (YELLOW); GLUCOSE, URINE (UA) 70 mg/dL (NEGATIVE); KETONES,URINE NEGATIVE (NEGATIVE); LEUKOCYTE ESTERASE ,URINE NEGATIVE Leu/uL (NEGATIVE); NITRATE,URINE NEGATIVE (NEGATIVE); OCCULT BLOOD,URINE SMALL (NEGATIVE); PH,URINE 6.5 (5.0-8.0); PROTEIN,URINE 300 mg/dL (NEGATIVE); UROBILINOGEN,URINE 0.2 mg/dL (0.2-1.0)
[2023-02-08 10:11] LABS: ADD UA MICROSCOPIC YES
[2023-02-08 10:15] LABS: BACTERIA,URINE RARE /HPF (None Seen)
[2023-02-08 10:16] LABS: BILIRUBIN,TOTAL 1.1 mg/dL (0.2-1.0); CREATININE 1.3 mg/dL (0.5-1.5); POTASSIUM 3.4 mmol/L (3.5-5.1); TOTAL PROTEIN, SERUM 6.7 g/dL (6.0-8.3)
[2023-02-08 10:29] LABS: BASOPHILS # (AUTO) 0.06 K/uL (0.00-0.20); BASOPHILS % (AUTO) 0.5 % (0.0-5.0); EOSINOPHILS % (AUTO) 5.1 % (0.0-8.0); HEMATOCRIT 31.3 % (42-54); IMMATURE GRANULOCYTE ABSOLUTE 0.04 K/uL (0-1); LYMPHOCYTES # (AUTO) 2.5 K/uL (1.0-4.8); LYMPHOCYTES % (AUTO) 21.2 % (21.0-51.0); MEAN CORPUSCULAR HEMOGLOBIN 27.3 pg (27.0-33.0); MEAN CORPUSCULAR HGB CONC 33.2 g/dL (32.0-36.0); MEAN CORPUSCULAR VOLUME 82.2 fL (79-99); MONOCYTES # (AUTO) 0.6 K/uL (0.1-1.0); MONOCYTES % (AUTO) 5.5 % (3.0-13.0); NEUTROPHILS # (AUTO) 7.9 K/uL (1.8-7.7); NEUTROPHILS % (AUTO) 67.4 % (40.0-77.0); PLATELET COUNT (AUTO) 212 K/uL (130-400); RED BLOOD CELL COUNT(AUTO) 3.81 MIL/uL (4.50-6.20); RED CELL DISTRIBUTION WIDTH 15.8 % (11.0-15.5); WHITE BLOOD COUNT (AUTO) 11.7 K/uL (4.8-10.8)
[2023-02-08 10:51] LABS: B-TYPE NATRIURETIC PEPTIDE 480 pg/mL (0-100)
[2023-02-08] MEDS ORDERED: IOHEXOL 350 MG/ML 100ML INFUS..BTL IV ONE (11:38)
[2023-02-08] MEDS ORDERED: POTASSIUM BICARB/CIT AC 25 MEQ TABLET.EFF PO ONE (13:30)
[2023-02-08] MEDS ORDERED: LORAZEPAM 0.5 MG TABLET PO ONE (13:30)
[2023-02-08] MEDS ORDERED: FUROSEMIDE 40MG VIAL IV ONE (13:30)
[2023-02-08] MEDS ORDERED: DOCUSATE SODIUM 100 MG CAP PO PRN (16:00)
[2023-02-08] MEDS ORDERED: LACTULOSE 20 GM/30 ML UDCUP PO PRN (16:00)
[2023-02-08] MEDS: FUROSEMIDE 40MG VIAL IV SCH ×2 (16:00→23:47)
[2023-02-08] MEDS ORDERED: GUAIFENESIN-DM 200/20 MG 10 ML PO PRN (16:00)
[2023-02-08] MEDS ORDERED: POTASSIUM CHLORIDE 10% ELIXIR 20 MEQ/15 ML UDCUP PO PRN (16:00)
[2023-02-08] MEDS ORDERED: HYDRALAZINE 25MG TABLET PO PRN (16:00)
[2023-02-08] MEDS ORDERED: MAGNESIUM 2GM PREMIX 50ML 50 ML IV PRN (16:00)
[2023-02-08] MEDS ORDERED: MAG/ALUM/SIMETH 30 ML UDCUP PO PRN (16:00)
[2023-02-08] MEDS ORDERED: POTASSIUM CHLORIDE 20MEQ/100ML 100 ML IV PRN ×2 (16:00)
[2023-02-08] MEDS ORDERED: NITROGLYCERIN 0.4 MG SL TAB SL PRN (16:00)
[2023-02-08] MEDS ORDERED: GUAIFENESIN SUGAR-FREE 100 MG/5 ML UDCUP PO PRN (16:00)
[2023-02-08] MEDS ORDERED: DiphenhydrAMINE HCL 50 MG/ML VIAL IV PRN (16:00)
[2023-02-08] MEDS ORDERED: ONDANSETRON 4MG INJ IV PRN (16:00)
[2023-02-08] MEDS ORDERED: POLYETHYLENE GLYCOL 3350 17 GM POWD.PACK PO PRN (16:00)
[2023-02-08] MEDS ORDERED: ACETAMINOPHEN 325 MG TAB PO PRN ×2 (16:00)
[2023-02-08] MEDS ORDERED: DIPHENHYDRAMINE HCL 25 MG CAPSULE PO PRN (16:00)
[2023-02-08] MEDS: INSULIN HUMULIN R 100 UNIT/ML 3ML SQ SCH ×2 (16:30→21:04)
[2023-02-08 16:54] LABS: SARS-CoV-2, RNA, NAAT NEGATIVE SARS CoV-2 (NEGATIVE)
[2023-02-08 16:59] LABS: INFLUENZA TYPE A Negative For Type A (NEGATIVE); INFLUENZA TYPE B Negative For Type B (NEGATIVE)
[2023-02-08] MEDS: IPRATROPIUM/ALBUTEROL SULFATE 3 ML SOLUTION IH SCH ×2 (18:46→23:41)
[2023-02-08 18:47] VITALS: PULSE 77; RESP 22
[2023-02-08 20:10] VITALS: BP 155/91; PULSE 81; RESP 20; O2SAT 97
[2023-02-08] MEDS: ENOXAPARIN SODIUM 40 MG/0.4 ML SYRINGE SQ SCH (20:56)
[2023-02-08] MEDS: FAMOTIDINE 20MG VIAL IV SCH (20:56)
[2023-02-08] MEDS: ALPRAZOLAM 0.5 MG TABLET PO PRN (21:07)
[2023-02-08] MEDS: KCL 20 MEQ ERTAB PO PRN ×2 (21:08→23:47)
[2023-02-08 23:41] VITALS: PULSE 75; RESP 20
[2023-02-09] VITALS (15 sets, daily range): BP systolic 151–176; BP diastolic 75–97; PULSE 74–85; RESP 17–21; O2SAT 95–99
[2023-02-09] MEDS ORDERED: LABETALOL 20MG SYG IV PRN (01:00)
[2023-02-09 01:49] LABS: ABG BASE EXCESS 6.4 mmol/L (-2.0-3.0); ABG HCO3 30.6 mmol/L (21.0-28.0); ABG OXYGEN SATURATION 93.1 % (95.0-99.0); ABG PCO2 43 mmHg (35-48); ABG PH 7.475 (7.35-7.450); CARBON MONOXIDE 0.1; CPAP, BG 10 cm H2O; DEVICE COMMENT LR RN; HHb 6.9; VENT MODE, BG CPAP10 (ROOM AIR)
[2023-02-09] MEDS: HYDRALAZINE 20MG/ML VIAL IV PRN ×2 (02:51→21:13)
[2023-02-09] MEDS: INSULIN HUMULIN R 100 UNIT/ML 3ML SQ SCH ×4 (06:06→21:15)
[2023-02-09] MEDS: IPRATROPIUM/ALBUTEROL SULFATE 3 ML SOLUTION IH SCH ×4 (07:03→23:00)
[2023-02-09] MEDS: FAMOTIDINE 20MG VIAL IV SCH ×2 (07:30→21:14)
[2023-02-09] MEDS: FUROSEMIDE 40MG VIAL IV SCH ×2 (07:30→15:44)
[2023-02-09] MEDS: ENOXAPARIN SODIUM 40 MG/0.4 ML SYRINGE SQ SCH ×2 (07:31→21:14)
[2023-02-09 09:27] LABS: BASOPHILS # (AUTO) 0.06 K/uL (0.00-0.20); BASOPHILS % (AUTO) 0.6 % (0.0-5.0); EOSINOPHILS % (AUTO) 3.8 % (0.0-8.0); HEMATOCRIT 28.9 % (42-54); IMMATURE GRANULOCYTE ABSOLUTE 0.03 K/uL (0-1); LYMPHOCYTES # (AUTO) 2.1 K/uL (1.0-4.8); LYMPHOCYTES % (AUTO) 20.5 % (21.0-51.0); MEAN CORPUSCULAR HEMOGLOBIN 27.6 pg (27.0-33.0); MEAN CORPUSCULAR HGB CONC 34.3 g/dL (32.0-36.0); MEAN CORPUSCULAR VOLUME 80.5 fL (79-99); MONOCYTES # (AUTO) 0.7 K/uL (0.1-1.0); NEUTROPHILS # (AUTO) 7.1 K/uL (1.8-7.7); NEUTROPHILS % (AUTO) 67.8 % (40.0-77.0); PLATELET COUNT (AUTO) 233 K/uL (130-400); RED BLOOD CELL COUNT(AUTO) 3.59 MIL/uL (4.50-6.20); RED CELL DISTRIBUTION WIDTH 16.1 % (11.0-15.5); WHITE BLOOD COUNT (AUTO) 10.5 K/uL (4.8-10.8)
[2023-02-09 09:46] LABS: ALBUMIN 2.2 g/dL (3.5-5.0); BILIRUBIN,TOTAL 1.5 mg/dL (0.2-1.0); CREATININE 1.3 mg/dL (0.5-1.5); THYROID STIMULATING HORMONE 8.26 uIU/mL (0.36-3.74); TOTAL PROTEIN, SERUM 6.7 g/dL (6.0-8.3)
[2023-02-09 10:08] LABS: B-TYPE NATRIURETIC PEPTIDE 887 pg/mL (0-100)
[2023-02-09] MEDS: KCL 20 MEQ ERTAB PO PRN ×3 (12:18→18:06)
[2023-02-09] MEDS: ALPRAZOLAM 0.5 MG TABLET PO PRN (22:21)
[2023-02-10] VITALS (19 sets, daily range): BP systolic 143–189; BP diastolic 80–96; PULSE 75–86; RESP 17–23; O2SAT 90–97
[2023-02-10] MEDS: FUROSEMIDE 40MG VIAL IV SCH ×3 (00:17→15:50)
[2023-02-10] MEDS ORDERED: CALC25 PO (02:42)
[2023-02-10] MEDS ORDERED: INSLAN SQ (02:42)
[2023-02-10] MEDS ORDERED: ROPI1TAB46 PO (02:42)
[2023-02-10] MEDS ORDERED: TEMA30CA5 PO (02:42)
[2023-02-10] MEDS ORDERED: LEVO200C2 PO (02:42)
[2023-02-10] MEDS ORDERED: APIX5TAB PO (02:42)
[2023-02-10] MEDS ORDERED: FOLI0.8T2 PO (02:42)
[2023-02-10] MEDS ORDERED: GABA300S3 PO ×2 (02:42→02:43)
[2023-02-10] MEDS ORDERED: FERR-63 PO (02:42)
[2023-02-10] MEDS ORDERED: FURO40TA7 PO (02:42)
[2023-02-10] MEDS ORDERED: IPRNEB IH (02:42)
[2023-02-10] MEDS ORDERED: PANT40TA55 PO (02:42)
[2023-02-10] MEDS ORDERED: AUD IH (02:42)
[2023-02-10] MEDS ORDERED: POLY17PO4 PO (02:42)
[2023-02-10] MEDS ORDERED: AMLO-258 PO (02:45)
[2023-02-10] MEDS: INSULIN HUMULIN R 100 UNIT/ML 3ML SQ SCH ×4 (05:30→20:27)
[2023-02-10 06:06] LABS: BASOPHILS # (AUTO) 0.05 K/uL (0.00-0.20); BASOPHILS % (AUTO) 0.5 % (0.0-5.0); EOSINOPHILS # (AUTO) 0.24 K/uL (0.00-0.70); EOSINOPHILS % (AUTO) 2.6 % (0.0-8.0); HEMATOCRIT 29.3 % (42-54); IMMATURE GRANULOCYTE ABSOLUTE 0.04 K/uL (0-1); LYMPHOCYTES # (AUTO) 2.1 K/uL (1.0-4.8); MEAN CORPUSCULAR HEMOGLOBIN 27.3 pg (27.0-33.0); MEAN CORPUSCULAR HGB CONC 33.4 g/dL (32.0-36.0); MEAN CORPUSCULAR VOLUME 81.6 fL (79-99); MONOCYTES # (AUTO) 0.8 K/uL (0.1-1.0); MONOCYTES % (AUTO) 8.5 % (3.0-13.0); PLATELET COUNT (AUTO) 218 K/uL (130-400); RED BLOOD CELL COUNT(AUTO) 3.59 MIL/uL (4.50-6.20); RED CELL DISTRIBUTION WIDTH 15.9 % (11.0-15.5); WHITE BLOOD COUNT (AUTO) 9.3 K/uL (4.8-10.8)
[2023-02-10 06:22] LABS: CREATININE 1.2 mg/dL (0.5-1.5); MAGNESIUM 1.7 mg/dL (1.80-2.40); POTASSIUM 3.2 mmol/L (3.5-5.1)
[2023-02-10] MEDS: KCL 20 MEQ ERTAB PO PRN ×5 (06:29→16:39)
[2023-02-10] MEDS: IPRATROPIUM/ALBUTEROL SULFATE 3 ML SOLUTION IH SCH ×4 (07:05→22:51)
[2023-02-10] MEDS: HYDRALAZINE 20MG/ML VIAL IV PRN (08:38)
[2023-02-10] MEDS: ENOXAPARIN SODIUM 40 MG/0.4 ML SYRINGE SQ SCH (08:39)
[2023-02-10] MEDS: FAMOTIDINE 20MG VIAL IV SCH ×2 (08:39→20:25)
[2023-02-10] MEDS ORDERED: NON-FORMULARY MEDICATION 1 EACH (Folic Acid/Vitamin B Comp W-C (Nephro-Vite Tablet) 0.8 MG PO SCH (09:00)
[2023-02-10] MEDS ORDERED: NON-FORMULARY MEDICATION 1 EACH (Amlodipine Besylate 10 MG) PO SCH (09:00)
[2023-02-10] MEDS ORDERED: NON-FORMULARY MEDICATION 1 EACH (Gabapentin 300 MG) PO SCH (09:00)
[2023-02-10] MEDS ORDERED: FERROUS SULFATE 325 MG PO SCH (09:00)
[2023-02-10] MEDS ORDERED: MAGNESIUM 2GM PREMIX 50ML 50 ML IV SCH (09:00)
[2023-02-10] MEDS ORDERED: LEVOTHYROXINE PO SCH (10:30)
[2023-02-10] MEDS ORDERED: LEVOTHYROXINE 300 MCG PO SCH (10:30)
[2023-02-10] MEDS: CALCITRIOL 0.25 MCG CAP PO SCH (10:46)
[2023-02-10] MEDS: CARVEDILOL 25 MG TABLET PO SCH ×2 (10:46→20:25)
[2023-02-10] MEDS: APIXABAN 5 MG TABLET PO SCH ×2 (10:46→20:24)
[2023-02-10] MEDS: LOSARTAN 25 MG TABLET PO SCH ×2 (10:47→20:25)
[2023-02-10] MEDS: ATORVASTATIN 40 MG TABLET PO SCH (10:47)
[2023-02-10] MEDS: PANTOPRAZOLE 40 MG TAB DR PO SCH (10:47)
[2023-02-10] MEDS: METOLAZONE 2.5 MG TABLET PO SCH (10:49)
[2023-02-10] MEDS: ALPRAZOLAM 0.5 MG TABLET PO PRN (14:27)
[2023-02-10] MEDS: GABAPENTIN 300 MG CAPSULE PO SCH (20:24)
[2023-02-10] MEDS: ROPINIROLE HCL 1 MG TABLET PO SCH (20:25)
[2023-02-10] MEDS: FERROUS SULFATE 325 MG TABLET.DR PO SCH (20:25)
[2023-02-10] MEDS: TEMAZEPAM 30 MG CAP PO PRN (20:25)
[2023-02-11] VITALS (15 sets, daily range): BP systolic 135–158; BP diastolic 75–89; PULSE 66–80; RESP 18–23; O2SAT 96–100
[2023-02-11] MEDS: FUROSEMIDE 40MG VIAL IV SCH ×3 (00:27→21:23)
[2023-02-11] MEDS: INSULIN HUMULIN R 100 UNIT/ML 3ML SQ SCH ×4 (05:07→22:45)
[2023-02-11] MEDS: IPRATROPIUM/ALBUTEROL SULFATE 3 ML SOLUTION IH SCH ×3 (05:07→11:20)
[2023-02-11 06:02] LABS: BASOPHILS # (AUTO) 0.06 K/uL (0.00-0.20); BASOPHILS % (AUTO) 0.7 % (0.0-5.0); EOSINOPHILS # (AUTO) 0.41 K/uL (0.00-0.70); HEMATOCRIT 27.6 % (42-54); IMMATURE GRANULOCYTE ABSOLUTE 0.01 K/uL (0-1); MEAN CORPUSCULAR HEMOGLOBIN 27.3 pg (27.0-33.0); MEAN CORPUSCULAR HGB CONC 33.7 g/dL (32.0-36.0); MEAN CORPUSCULAR VOLUME 80.9 fL (79-99); MONOCYTES # (AUTO) 0.8 K/uL (0.1-1.0); MONOCYTES % (AUTO) 9.1 % (3.0-13.0); NEUTROPHILS # (AUTO) 5.1 K/uL (1.8-7.7); NEUTROPHILS % (AUTO) 61.1 % (40.0-77.0); PLATELET COUNT (AUTO) 205 K/uL (130-400); RED BLOOD CELL COUNT(AUTO) 3.41 MIL/uL (4.50-6.20); RED CELL DISTRIBUTION WIDTH 15.8 % (11.0-15.5); WHITE BLOOD COUNT (AUTO) 8.3 K/uL (4.8-10.8)
[2023-02-11 06:25] LABS: BILIRUBIN,TOTAL 1.9 mg/dL (0.2-1.0); CREATININE 1.5 mg/dL (0.5-1.5); MAGNESIUM 1.8 mg/dL (1.80-2.40); POTASSIUM 3.3 mmol/L (3.5-5.1); TOTAL PROTEIN, SERUM 6.4 g/dL (6.0-8.3)
[2023-02-11] MEDS: KCL 20 MEQ ERTAB PO PRN ×2 (06:34→11:16)
[2023-02-11] MEDS ORDERED: HONEY 1 APPL/ML TUBE TP SCH (09:00)
[2023-02-11] MEDS: AMLODIPINE 5 MG TAB PO SCH (10:25)
[2023-02-11] MEDS: METOLAZONE 2.5 MG TABLET PO SCH (10:25)
[2023-02-11] MEDS: FERROUS SULFATE 325 MG TABLET.DR PO SCH ×2 (10:25→21:22)
[2023-02-11] MEDS: GABAPENTIN 300 MG CAPSULE PO SCH ×2 (10:25→21:23)
[2023-02-11] MEDS: PANTOPRAZOLE 40 MG TAB DR PO SCH (10:25)
[2023-02-11] MEDS: CALCITRIOL 0.25 MCG CAP PO SCH (10:26)
[2023-02-11] MEDS: FAMOTIDINE 20MG VIAL IV SCH ×2 (10:26→21:23)
[2023-02-11] MEDS: ATORVASTATIN 40 MG TABLET PO SCH (10:26)
[2023-02-11] MEDS: CARVEDILOL 25 MG TABLET PO SCH ×2 (10:26→21:22)
[2023-02-11] MEDS: Vitamin B Complex/Vit C/Folic Acid PO SCH (10:26)
[2023-02-11] MEDS: APIXABAN 5 MG TABLET PO SCH ×2 (10:26→21:21)
[2023-02-11] MEDS: LOSARTAN 25 MG TABLET PO SCH ×2 (10:26→21:22)
[2023-02-11] MEDS ORDERED: ACETAZOLAMIDE SODIUM 500 MG VIAL IV SCH (16:00)
[2023-02-11] MEDS: ROPINIROLE HCL 1 MG TABLET PO SCH (21:22)
[2023-02-11] MEDS: ZOLPIDEM TARTRATE 5 MG TAB PO PRN (22:27)
[2023-02-12] VITALS (17 sets, daily range): BP systolic 128–164; BP diastolic 71–93; PULSE 63–82; RESP 18–22; O2SAT 90–98
[2023-02-12] MEDS: IPRATROPIUM/ALBUTEROL SULFATE 3 ML SOLUTION IH SCH ×5 (00:09→22:55)
[2023-02-12] MEDS: INSULIN HUMULIN R 100 UNIT/ML 3ML SQ SCH ×3 (06:19→18:05)
[2023-02-12 07:30] LABS: BASOPHILS # (AUTO) 0.06 K/uL (0.00-0.20); BASOPHILS % (AUTO) 0.8 % (0.0-5.0); EOSINOPHILS # (AUTO) 0.53 K/uL (0.00-0.70); EOSINOPHILS % (AUTO) 7.4 % (0.0-8.0); HEMATOCRIT 27.9 % (42-54); IMMATURE GRANULOCYTE ABSOLUTE 0.02 K/uL (0-1); LYMPHOCYTES # (AUTO) 2.1 K/uL (1.0-4.8); LYMPHOCYTES % (AUTO) 28.7 % (21.0-51.0); MEAN CORPUSCULAR HEMOGLOBIN 27.1 pg (27.0-33.0); MEAN CORPUSCULAR HGB CONC 32.6 g/dL (32.0-36.0); MONOCYTES # (AUTO) 0.5 K/uL (0.1-1.0); MONOCYTES % (AUTO) 6.7 % (3.0-13.0); NEUTROPHILS % (AUTO) 56.1 % (40.0-77.0); PLATELET COUNT (AUTO) 246 K/uL (130-400); RED BLOOD CELL COUNT(AUTO) 3.36 MIL/uL (4.50-6.20); RED CELL DISTRIBUTION WIDTH 15.5 % (11.0-15.5); WHITE BLOOD COUNT (AUTO) 7.2 K/uL (4.8-10.8)
[2023-02-12 07:44] LABS: BILIRUBIN,TOTAL 1.1 mg/dL (0.2-1.0); CREATININE 1.8 mg/dL (0.5-1.5); POTASSIUM 3.4 mmol/L (3.5-5.1); TOTAL PROTEIN, SERUM 6.5 g/dL (6.0-8.3)
[2023-02-12 08:37] LABS: B-TYPE NATRIURETIC PEPTIDE 320 pg/mL (0-100)
[2023-02-12] MEDS: FAMOTIDINE 20MG VIAL IV SCH ×2 (10:03→22:32)
[2023-02-12] MEDS: FUROSEMIDE 40MG VIAL IV SCH (10:04)
[2023-02-12] MEDS: APIXABAN 5 MG TABLET PO SCH ×2 (10:05→22:30)
[2023-02-12] MEDS: LOSARTAN 25 MG TABLET PO SCH ×2 (10:05→22:29)
[2023-02-12] MEDS: Vitamin B Complex/Vit C/Folic Acid PO SCH (10:05)
[2023-02-12] MEDS: CARVEDILOL 25 MG TABLET PO SCH ×2 (10:05→22:29)
[2023-02-12] MEDS: FERROUS SULFATE 325 MG TABLET.DR PO SCH ×2 (10:05→22:30)
[2023-02-12] MEDS: ATORVASTATIN 40 MG TABLET PO SCH (10:05)
[2023-02-12] MEDS: METOLAZONE 2.5 MG TABLET PO SCH (10:06)
[2023-02-12] MEDS: GABAPENTIN 300 MG CAPSULE PO SCH ×2 (10:06→22:30)
[2023-02-12] MEDS: AMLODIPINE 5 MG TAB PO SCH (10:06)
[2023-02-12] MEDS: CALCITRIOL 0.25 MCG CAP PO SCH (10:06)
[2023-02-12] MEDS: PANTOPRAZOLE 40 MG TAB DR PO SCH (10:06)
[2023-02-12] MEDS: KCL 20 MEQ ERTAB PO PRN (12:32)
[2023-02-12] MEDS: ZOLPIDEM TARTRATE 5 MG TAB PO PRN (22:28)
[2023-02-12] MEDS: ROPINIROLE HCL 1 MG TABLET PO SCH (22:29)
[2023-02-12] MEDS: FUROSEMIDE 40 MG TABLET PO SCH (22:29)
[2023-02-13] VITALS (10 sets, daily range): BP systolic 136–159; BP diastolic 66–92; PULSE 58–85; RESP 18–20; O2SAT 92–98
[2023-02-13] MEDS: INSULIN HUMULIN R 100 UNIT/ML 3ML SQ SCH ×5 (01:46→22:15)
[2023-02-13 05:05] LABS: MEAN CORPUSCULAR HEMOGLOBIN 26.9 pg (27.0-33.0); MEAN CORPUSCULAR HGB CONC 33.6 g/dL (32.0-36.0); RED BLOOD CELL COUNT(AUTO) 3.5 MIL/uL (4.50-6.20); RED CELL DISTRIBUTION WIDTH 15.2 % (11.0-15.5); WHITE BLOOD COUNT (AUTO) 8.8 K/uL (4.8-10.8)
[2023-02-13 05:23] LABS: CREATININE 1.7 mg/dL (0.5-1.5); POTASSIUM 3.4 mmol/L (3.5-5.1)
[2023-02-13] MEDS: IPRATROPIUM/ALBUTEROL SULFATE 3 ML SOLUTION IH SCH ×4 (07:00→23:10)
[2023-02-13] MEDS: CALCITRIOL 0.25 MCG CAP PO SCH (13:45)
[2023-02-13] MEDS: FAMOTIDINE 20MG VIAL IV SCH ×2 (13:45→22:17)
[2023-02-13] MEDS: FERROUS SULFATE 325 MG TABLET.DR PO SCH ×2 (13:46→22:22)
[2023-02-13] MEDS: Vitamin B Complex/Vit C/Folic Acid PO SCH (13:46)
[2023-02-13] MEDS: GABAPENTIN 300 MG CAPSULE PO SCH ×2 (13:46→22:19)
[2023-02-13] MEDS: AMLODIPINE 5 MG TAB PO SCH (13:46)
[2023-02-13] MEDS: CARVEDILOL 25 MG TABLET PO SCH ×2 (13:46→22:18)
[2023-02-13] MEDS: FUROSEMIDE 40 MG TABLET PO SCH ×2 (13:47→22:18)
[2023-02-13] MEDS: APIXABAN 5 MG TABLET PO SCH ×2 (13:47→22:22)
[2023-02-13] MEDS: METOLAZONE 2.5 MG TABLET PO SCH (13:47)
[2023-02-13] MEDS: ATORVASTATIN 40 MG TABLET PO SCH (13:47)
[2023-02-13] MEDS: LOSARTAN 25 MG TABLET PO SCH ×2 (13:47→22:18)
[2023-02-13] MEDS: PANTOPRAZOLE 40 MG TAB DR PO SCH (13:48)
[2023-02-13] MEDS: ROPINIROLE HCL 1 MG TABLET PO SCH (22:22)
[2023-02-13] MEDS: TEMAZEPAM 30 MG CAP PO PRN (22:53)
[2023-02-13] MEDS: KCL 20 MEQ ERTAB PO PRN (23:41)
[2023-02-14] VITALS (11 sets, daily range): BP systolic 130–166; BP diastolic 60–92; PULSE 54–79; RESP 17–22; O2SAT 95–98
[2023-02-14] MEDS: INSULIN HUMULIN R 100 UNIT/ML 3ML SQ SCH ×3 (06:14→17:52)
[2023-02-14] MEDS: IPRATROPIUM/ALBUTEROL SULFATE 3 ML SOLUTION IH SCH ×3 (06:39→18:56)
[2023-02-14] MEDS: APIXABAN 5 MG TABLET PO SCH ×2 (09:00→10:59)
[2023-02-14 10:26] LABS: ALBUMIN 2.3 g/dL (3.5-5.0); BILIRUBIN,DIRECT 0.1 mg/dL (0.0-0.3); BILIRUBIN,TOTAL 0.7 mg/dL (0.2-1.0); TOTAL PROTEIN, SERUM 7.3 g/dL (6.0-8.3)
[2023-02-14 10:32] LABS: INR 1.04 (0.85-1.15)
[2023-02-14] MEDS: CALCITRIOL 0.25 MCG CAP PO SCH (10:59)
[2023-02-14] MEDS: FUROSEMIDE 40 MG TABLET PO SCH (10:59)
[2023-02-14] MEDS: METOLAZONE 2.5 MG TABLET PO SCH (10:59)
[2023-02-14] MEDS: PANTOPRAZOLE 40 MG TAB DR PO SCH (10:59)
[2023-02-14] MEDS: GABAPENTIN 300 MG CAPSULE PO SCH (11:00)
[2023-02-14] MEDS: Vitamin B Complex/Vit C/Folic Acid PO SCH (11:02)
[2023-02-14] MEDS: CARVEDILOL 25 MG TABLET PO SCH (11:02)
[2023-02-14] MEDS: ATORVASTATIN 40 MG TABLET PO SCH (11:03)
[2023-02-14] MEDS: FAMOTIDINE 20MG VIAL IV SCH (11:03)
[2023-02-14] MEDS: FERROUS SULFATE 325 MG TABLET.DR PO SCH (11:03)
[2023-02-14] MEDS: LOSARTAN 25 MG TABLET PO SCH (11:03)
[2023-02-14] MEDS: AMLODIPINE 5 MG TAB PO SCH (11:03)
[2023-02-14] MEDS ORDERED: GENTAMICIN 15 GM CREAM TP SCH (21:00)
== END 2023-02-14 20:00 | disposition home or self-care (01) | DRG 194 ==
LOC: EDH 08:39 → EDHIP 08:40 → 4AH 19:16
PROVIDERS: ADMIT Internal Medicine Pulmonary Disease; ATTEND Internal Medicine Pulmonary Disease
PROC: 02HV33Z Insertion of Infusion Device into Superior Vena Cava, Percutaneous Approach (ICD-10-PCS; principal; 2023-02-08)
PROC: B548ZZA Ultrasonography of Superior Vena Cava, Guidance (ICD-10-PCS; 2023-02-08)
DX: I13.0 Hypertensive heart and chronic kidney disease with heart failure and stage 1 through stage 4 chronic kidney disease, or unspecified chronic kidney disease (principal); J96.21 Acute and chronic respiratory failure with hypoxia; L89.312 Pressure ulcer of right buttock, stage 2; E11.22 Type 2 diabetes mellitus with diabetic chronic kidney disease; K80.42 Calculus of bile duct with acute cholecystitis without obstruction; D63.8 Anemia in other chronic diseases classified elsewhere; L02.31 Cutaneous abscess of buttock; Z79.01 Long term (current) use of anticoagulants; B95.2 Enterococcus as the cause of diseases classified elsewhere; I50.23 Acute on chronic systolic (congestive) heart failure; E11.65 Type 2 diabetes mellitus with hyperglycemia; E66.01 Morbid (severe) obesity due to excess calories; E78.00 Pure hypercholesterolemia, unspecified; E87.6 Hypokalemia; J98.11 Atelectasis; E89.0 Postprocedural hypothyroidism; G47.33 Obstructive sleep apnea (adult) (pediatric); J96.22 Acute and chronic respiratory failure with hypercapnia; Z68.41 Body mass index [BMI] 40.0-44.9, adult; Z83.3 Family history of diabetes mellitus; Z79.899 Other long term (current) drug therapy
CPT/HCPCS: 36415; 36600; 71045; 71270; 73718; 74181; 76700; 78226; 80048; 80053; 80076; 81001; 82435; 82803; 82947; 82948; 83036; 83605; 83735; 83880; 84132; 84295; 84443; 84484; 85018; 85025; 85027; 85378; 85610; 87070; 87077; 87186; 87635; 87804; 93005; 93970; 94640; 94660; 94664; 94760; A9537; G0378; J0360; J1120; J1650; J1815; J1940; J3490; Q0163; Q9967; S8037

== ENCOUNTER → 2023-06-04 | Outpatient (CLI) | payer MEDICAID ==
[~2023-06-04] MED LIST changes: +APIX5TAB PO; +AUD IH; -BUME1TAB6 PO; +CALC25 PO; +FERR-63 PO; +FOLI0.8T2 PO; +FURO40TA7 PO; +GABA300S3 PO; -HYDR-4154 PO; +INSLAN SQ; -INSU500I SQ; +IPRNEB IH; -ISOS1POW MC; -LACT10SO76 PO; -LEVO50CA4 PO; -METF-446 PO; +PANT40TA55 PO; +POLY17PO4 PO; +ROPI1TAB46 PO; -SEMA2PEN SQ; -TAMS-1 PO; +TEMA30CA5 PO
== END | disposition home or self-care (01) ==
LOC: SHCH 07:31
PROVIDERS: ATTEND Internal Medicine Cardiovascular Disease
DX: I87.1 Compression of vein (principal); I87.2 Venous insufficiency (chronic) (peripheral); I10 Essential (primary) hypertension; I25.10 Atherosclerotic heart disease of native coronary artery without angina pectoris; G47.33 Obstructive sleep apnea (adult) (pediatric); E66.01 Morbid (severe) obesity due to excess calories; Z68.42 Body mass index [BMI] 45.0-49.9, adult; Z79.899 Other long term (current) drug therapy
CPT/HCPCS: 93970

== ENCOUNTER → 2023-08-14 | Outpatient (CLI) | payer MEDICAID | END | disposition home or self-care (01) | LOC: SHCH 10:38 | PROVIDERS: ATTEND Internal Medicine Cardiovascular Disease | DX: I73.9 Peripheral vascular disease, unspecified (principal) | CPT/HCPCS: 93925 ==

== ENCOUNTER 2023-08-28 13:55 | Inpatient (IN) | payer MEDICARE ==
[~2023-08-28] VITALS: Ht 170.2 cm; Wt 142.9 kg
[2023-08-28 14:44] LABS: BASOPHILS # (AUTO) 0.08 K/uL (0.00-0.20); BASOPHILS % (AUTO) 0.5 % (0.0-5.0); EOSINOPHILS # (AUTO) 0.26 K/uL (0.00-0.70); EOSINOPHILS % (AUTO) 1.8 % (0.0-8.0); HEMATOCRIT 37.3 % (42-54); IMMATURE GRANULOCYTE ABSOLUTE 0.12 K/uL (0-1); LYMPHOCYTES % (AUTO) 13.8 % (21.0-51.0); MEAN CORPUSCULAR HEMOGLOBIN 26.2 pg (27.0-33.0); MEAN CORPUSCULAR HGB CONC 31.9 g/dL (32.0-36.0); MONOCYTES # (AUTO) 1.1 K/uL (0.1-1.0); MONOCYTES % (AUTO) 7.4 % (3.0-13.0); NEUTROPHILS # (AUTO) 11.2 K/uL (1.8-7.7); NEUTROPHILS % (AUTO) 75.7 % (40.0-77.0); PLATELET COUNT (AUTO) 166 K/uL (130-400); RED BLOOD CELL COUNT(AUTO) 4.55 MIL/uL (4.50-6.20); RED CELL DISTRIBUTION WIDTH 15.7 % (11.0-15.5); WHITE BLOOD COUNT (AUTO) 14.8 K/uL (4.8-10.8)
[2023-08-28] MEDS: ALBUTEROL 0.083% 2.5 MG/3 ML INH IH ONE ×2 (14:48→18:50)
[2023-08-28 14:52] VITALS: PULSE 72; RESP 20
[2023-08-28 14:52] LABS: CREATININE 1.8 mg/dL (0.5-1.3)
[2023-08-28 15:02] LABS: MAGNESIUM 2.2 mg/dL (1.80-2.40); TOTAL PROTEIN, SERUM 6.7 g/dL (6.0-8.3)
[2023-08-28 15:29] LABS: B-TYPE NATRIURETIC PEPTIDE 211 pg/mL (0-100)
[2023-08-28] MEDS: CEFTRIAXONE 1G VIAL IVPB ONE (17:19)
[2023-08-28] MEDS: AZITHROMYCIN 500MG+NS 250ML 250 ML IVPB STA (17:20)
[2023-08-28] MEDS: 0.9%NACL 1000ML 1,000 ML IV ONE (17:55)
[2023-08-28 18:52] VITALS: PULSE 79; RESP 22
[2023-08-28] MEDS ORDERED: ONDANSETRON 4MG INJ IV PRN (20:00)
[2023-08-28] MEDS ORDERED: ACETAMINOPHEN 325 MG TAB PO PRN (20:00)
[2023-08-28] MEDS ORDERED: ACETAMINOPHEN WITH CODEINE 1 TAB TAB PO PRN ×2 (20:00)
[2023-08-28] MEDS ORDERED: GABA300C PO (20:14)
[2023-08-28] MEDS ORDERED: HYDR25TA PO (20:14)
[2023-08-28] MEDS ORDERED: FURO40TA5 PO (20:14)
[2023-08-28] MEDS ORDERED: HYDR50TA37 PO (20:14)
[2023-08-28] MEDS ORDERED: BISA-151 PO (20:14)
[2023-08-28] MEDS ORDERED: LOSA100T59 PO (20:14)
[2023-08-28] MEDS ORDERED: MINO2.5T3 PO (20:14)
[2023-08-28] MEDS ORDERED: ATOR40TA69 PO (20:14)
[2023-08-28] MEDS ORDERED: TAMS-1 PO (20:14)
[2023-08-28] MEDS ORDERED: CALC0.253 PO (20:14)
[2023-08-28] MEDS: CEFTRIAXONE 1G VIAL IVPB SCH (20:17)
[2023-08-28] MEDS ORDERED: DOXYCYCLINE 100MG+NS 250ML 250 ML IV SCH (20:30)
[2023-08-28] MEDS: AZITHROMYCIN 500MG+NS 250ML 250 ML IVPB SCH (20:30)
[2023-08-28] MEDS: FAMOTIDINE 20MG VIAL IV SCH (20:37)
[2023-08-28 22:35] VITALS: BP 170/81; PULSE 79; RESP 20
[2023-08-28 22:45] VITALS: O2SAT 95
[2023-08-28] MEDS ORDERED: INSU100V3 SQ (22:46)
[2023-08-28] MEDS: SODIUM CHLORIDE 3% FOR INHALATION 4 ML/AMP VIAL.NEB IH ONE (22:51)
[2023-08-28] MEDS: IPRATROPIUM/ALBUTEROL SULFATE 3 ML SOLUTION IH ONE (22:51)
[2023-08-28 22:52] VITALS: PULSE 79; RESP 22
[2023-08-28] MEDS: IPRATROPIUM/ALBUTEROL SULFATE 3 ML SOLUTION IH SCH (22:52)
[2023-08-28] MEDS: PREDNISONE 20 MG TABLET PO ONE (23:45)
[2023-08-29] VITALS (14 sets, daily range): BP systolic 137–172; BP diastolic 69–117; PULSE 68–103; RESP 16–20; O2SAT 98–100
[2023-08-29] MEDS: 0.9%NACL 1000ML 1,000 ML IV SCH (00:48)
[2023-08-29 04:31] LABS: BASOPHILS # (AUTO) 0.06 K/uL (0.00-0.20); BASOPHILS % (AUTO) 0.4 % (0.0-5.0); EOSINOPHILS # (AUTO) 0.05 K/uL (0.00-0.70); EOSINOPHILS % (AUTO) 0.3 % (0.0-8.0); HEMATOCRIT 37.5 % (42-54); IMMATURE GRANULOCYTE ABSOLUTE 0.15 K/uL (0-1); MEAN CORPUSCULAR HEMOGLOBIN 25.7 pg (27.0-33.0); MEAN CORPUSCULAR HGB CONC 32.3 g/dL (32.0-36.0); MEAN CORPUSCULAR VOLUME 79.6 fL (79-99); MONOCYTES # (AUTO) 0.5 K/uL (0.1-1.0); MONOCYTES % (AUTO) 2.9 % (3.0-13.0); NEUTROPHILS # (AUTO) 14.1 K/uL (1.8-7.7); NEUTROPHILS % (AUTO) 89.4 % (40.0-77.0); PLATELET COUNT (AUTO) 149 K/uL (130-400); RED BLOOD CELL COUNT(AUTO) 4.71 MIL/uL (4.50-6.20); RED CELL DISTRIBUTION WIDTH 15.4 % (11.0-15.5); WHITE BLOOD COUNT (AUTO) 15.8 K/uL (4.8-10.8)
[2023-08-29 04:53] LABS: B-TYPE NATRIURETIC PEPTIDE 204 pg/mL (0-100)
[2023-08-29 04:54] LABS: ALBUMIN 2.9 g/dL (3.5-5.0); BILIRUBIN,TOTAL 1.5 mg/dL (0.2-1.0); CREATININE 1.7 mg/dL (0.5-1.3); TOTAL PROTEIN, SERUM 6.7 g/dL (6.0-8.3)
[2023-08-29 05:35] LABS: ERYTHROCYTE SEDIMENTATION RATE 32 MM/HR (0-15)
[2023-08-29] MEDS: ENOXAPARIN SODIUM 40 MG/0.4 ML SYRINGE SQ SCH (09:40)
[2023-08-29] MEDS: ASPIRIN 81MG CHEW TAB PO SCH (09:40)
[2023-08-29] MEDS: CARVEDILOL 12.5 MG TABLET PO SCH (13:08)
[2023-08-29] MEDS: GUAIFENESIN-DM 200/20 MG 10 ML PO PRN (13:08)
[2023-08-29] MEDS: FUROSEMIDE 40MG VIAL IV SCH (13:09)
[2023-08-29] MEDS: CEFTRIAXONE 1G VIAL IVPB SCH (16:26)
[2023-08-29] MEDS: AZITHROMYCIN 500MG+NS 250ML 250 ML IVPB SCH (16:27)
[2023-08-29] MEDS: INSULIN HUMULIN R 100 UNIT/ML 3ML SQ SCH (17:38)
[2023-08-30] VITALS (18 sets, daily range): BP systolic 138–173; BP diastolic 68–93; PULSE 67–91; RESP 12–21; O2SAT 95–100
[2023-08-30 09:38] LABS: ABG BASE EXCESS 6.4 mmol/L (-2.0-3.0); ABG HCO3 30.2 mmol/L (21.0-28.0); ABG OXYGEN SATURATION 97.8 % (95.0-99.0); ABG PCO2 40 mmHg (35-48); ABG PH 7.493 (7.35-7.450); CPAP, BG 10 cm H2O; DEVICE COMMENT RR IMELDA RN; PO2, ARTERIAL BG 95.6 mmHg (83.0-108.0); VENT MODE, BG CPAP 10 (ROOM AIR)
[2023-08-30 12:24] LABS: INFLUENZA TYPE A Negative For Type A (NEGATIVE); INFLUENZA TYPE B Negative For Type B (NEGATIVE)
[2023-08-30 12:45] LABS: HEMATOCRIT 34.1 % (42-54); MEAN CORPUSCULAR HEMOGLOBIN 26.4 pg (27.0-33.0); MEAN CORPUSCULAR HGB CONC 32.6 g/dL (32.0-36.0); MEAN CORPUSCULAR VOLUME 81.2 fL (79-99); RED BLOOD CELL COUNT(AUTO) 4.2 MIL/uL (4.50-6.20); RED CELL DISTRIBUTION WIDTH 15.4 % (11.0-15.5); WHITE BLOOD COUNT (AUTO) 13.3 K/uL (4.8-10.8)
[2023-08-30] MEDS ORDERED: LEVOTHYROXINE SODIUM 250 MCG PO SCH (13:00)
[2023-08-30] MEDS ORDERED: LEVOTHYROXINE SODIUM 300 MCG PO SCH (13:00)
[2023-08-30 13:05] LABS: CREATININE 1.7 mg/dL (0.5-1.3); POTASSIUM 3.5 mmol/L (3.5-5.1)
[2023-08-30] MEDS ORDERED: POTASSIUM CHLORIDE 10% ELIXIR 20 MEQ/15 ML UDCUP PO PRN (13:30)
[2023-08-30] MEDS ORDERED: POTASSIUM CHLORIDE 20MEQ/100ML 100 ML IV PRN (13:30)
[2023-08-30] MEDS: KCL 20 MEQ ERTAB PO PRN (17:06)
[2023-08-30] MEDS: BUDESONIDE 0.5 MG/2 ML INH IH SCH (18:44)
[2023-08-30] MEDS: ACETYLCYSTEINE 10% 100MG/ML 4ML VIAL IH SCH (18:44)
[2023-08-30] MEDS: MELATONIN 5 MG TABLET PO SCH (20:01)
[2023-08-31] VITALS (16 sets, daily range): BP systolic 137–176; BP diastolic 64–91; PULSE 71–82; RESP 14–22; O2SAT 90–100
[2023-08-31 03:25] LABS: HEMATOCRIT 32.7 % (42-54); MEAN CORPUSCULAR HEMOGLOBIN 26.3 pg (27.0-33.0); MEAN CORPUSCULAR HGB CONC 33.3 g/dL (32.0-36.0); MEAN CORPUSCULAR VOLUME 78.8 fL (79-99); RED BLOOD CELL COUNT(AUTO) 4.15 MIL/uL (4.50-6.20); RED CELL DISTRIBUTION WIDTH 15.1 % (11.0-15.5); WHITE BLOOD COUNT (AUTO) 13.6 K/uL (4.8-10.8)
[2023-08-31 03:50] LABS: CREATININE 1.6 mg/dL (0.5-1.3); MAGNESIUM 1.8 mg/dL (1.80-2.40); POTASSIUM 3.5 mmol/L (3.5-5.1); THYROID STIMULATING HORMONE 13.02 uIU/mL (0.36-3.74)
[2023-08-31] MEDS: LEVOTHYROXINE 125 MCG TABLET PO SCH (05:33)
[2023-08-31] MEDS: MAGNESIUM 2GM PREMIX 50ML 50 ML IV PRN (20:18)
[2023-09-01] VITALS (16 sets, daily range): BP systolic 119–176; BP diastolic 65–93; PULSE 68–80; RESP 18–22; O2SAT 95–100
[2023-09-01] MEDS: FUROSEMIDE 40MG VIAL IV SCH (05:28)
[2023-09-01] MEDS ORDERED: MORPHINE 2 MG SYG IVP PRN (05:30)
[2023-09-01] MEDS: LORAZEPAM 2 MG/ML 1 ML VIAL IVP ONE (06:09)
[2023-09-01] MEDS: LEVOTHYROXINE 100 MCG TABLET PO SCH (06:10)
[2023-09-01 08:14] LABS: HEMATOCRIT 33.5 % (42-54); MEAN CORPUSCULAR HEMOGLOBIN 25.8 pg (27.0-33.0); MEAN CORPUSCULAR HGB CONC 31.9 g/dL (32.0-36.0); MEAN CORPUSCULAR VOLUME 80.9 fL (79-99); RED BLOOD CELL COUNT(AUTO) 4.14 MIL/uL (4.50-6.20); WHITE BLOOD COUNT (AUTO) 12.2 K/uL (4.8-10.8)
[2023-09-01 08:26] LABS: CREATININE 1.7 mg/dL (0.5-1.3); POTASSIUM 3.7 mmol/L (3.5-5.1)
[2023-09-01] MEDS: CEFEPIME HCL 2 GM VIAL IVPB SCH (12:26)
[2023-09-01] MEDS ORDERED: VANCOMYCIN 750MG VIAL IVPB SCH (15:00)
[2023-09-01] MEDS ORDERED: 0.9% NACL 250ML IVPB SCH (15:00)
[2023-09-01] MEDS ORDERED: COMPOUND IV REFRIGERATED 1 EACH IVSOLN MISC PRN (15:30)
[2023-09-01] MEDS: VANCOMYCIN 2GM/500 ML BAG 500 ML IV ONE (16:14)
[2023-09-01] MEDS: POLYETHYLENE GLYCOL 3350 17 GM POWD.PACK PO ONE (17:36)
[2023-09-01] MEDS: LACTULOSE 20 GM/30 ML UDCUP PO PRN (17:36)
[2023-09-01] MEDS: ALPRAZOLAM 1 MG TAB PO PRN (18:51)
[2023-09-02] VITALS (15 sets, daily range): BP systolic 128–155; BP diastolic 74–92; PULSE 63–82; RESP 18–25; O2SAT 93–97
[2023-09-02] MEDS: VANCOMYCIN 1.5 GM/250 ML BAG 250 ML IV SCH (03:34)
[2023-09-02 04:02] LABS: HEMATOCRIT 30.2 % (42-54); MEAN CORPUSCULAR HEMOGLOBIN 26.1 pg (27.0-33.0); MEAN CORPUSCULAR HGB CONC 32.8 g/dL (32.0-36.0); MEAN CORPUSCULAR VOLUME 79.5 fL (79-99); RED BLOOD CELL COUNT(AUTO) 3.8 MIL/uL (4.50-6.20); RED CELL DISTRIBUTION WIDTH 15.1 % (11.0-15.5); WHITE BLOOD COUNT (AUTO) 12.5 K/uL (4.8-10.8)
[2023-09-02 04:12] LABS: CREATININE 1.7 mg/dL (0.5-1.3); MAGNESIUM 2.1 mg/dL (1.80-2.40); POTASSIUM 3.9 mmol/L (3.5-5.1)
[2023-09-02 04:42] LABS: ABG BASE EXCESS 2.4 mmol/L (-2.0-3.0); ABG HCO3 26.8 mmol/L (21.0-28.0); ABG OXYGEN SATURATION 93.3 % (95.0-99.0); ABG PCO2 41 mmHg (35-48); ABG PH 7.435 (7.35-7.450); CARBON MONOXIDE 1.5; CPAP, BG 10 cm H2O; DEVICE COMMENT CPAP; HHb 6.6; PO2, ARTERIAL BG 68.2 mmHg (83.0-108.0); VENT MODE, BG RN RAY (ROOM AIR)
[2023-09-02] MEDS: POLYETHYLENE GLYCOL 3350 17 GM POWD.PACK PO SCH (08:39)
[2023-09-02] MEDS ORDERED: VANCOMYCIN PROTOCOL PER PHARMACY IV SCH (09:00)
[2023-09-02] MEDS: PREDNISONE 20 MG TABLET PO SCH (11:01)
[2023-09-02] MEDS: FUROSEMIDE 40MG VIAL IV SCH (12:08)
[2023-09-02] MEDS ORDERED: NON-FORMULARY MEDICATION 1 EACH (Hydralazine HCl 50 MG) PO SCH (14:00)
[2023-09-02] MEDS: HYDRALAZINE 25MG TABLET PO SCH (14:25)
[2023-09-02] MEDS: ACETAMINOPHEN 325 MG TAB PO PRN (17:01)
[2023-09-02] MEDS: INSULIN HUMULIN R 100 UNIT/ML 3ML SQ SCH (17:02)
[2023-09-02] MEDS: HYDROXYZINE 25 MG TABLET PO PRN (18:37)
[2023-09-02] MEDS: GABAPENTIN 300 MG CAPSULE PO SCH (20:21)
[2023-09-02] MEDS: TAMSULOSIN HCL 0.4 MG CAP.ER.24H PO SCH (20:21)
[2023-09-02] MEDS: CARVEDILOL 25 MG TABLET PO SCH (20:22)
[2023-09-02] MEDS: MINOXIDIL 2.5 MG TAB PO SCH (20:22)
[2023-09-02] MEDS: INSULIN GLARGINE 100 UNITS/ML 10 ML VIAL SQ SCH (20:34)
[2023-09-02] MEDS: INSULIN HUMULIN R 100 UNIT/ML 3ML SQ ONE (22:21)
[2023-09-03] VITALS (13 sets, daily range): BP systolic 123–140; BP diastolic 72–80; PULSE 54–78; RESP 18–23; O2SAT 91–99
[2023-09-03] MEDS: LEVOTHYROXINE 125 MCG TABLET PO SCH (05:51)
[2023-09-03] MEDS: INSULIN GLARGINE 100 UNITS/ML 10 ML VIAL SQ SCH (07:11)
[2023-09-03] MEDS: CALCITRIOL 0.25 MCG CAP PO SCH (08:56)
[2023-09-03] MEDS: LOSARTAN 100 MG TABLET PO SCH (09:00)
[2023-09-03 10:19] LABS: HEMATOCRIT 29.7 % (42-54); MEAN CORPUSCULAR HEMOGLOBIN 26.5 pg (27.0-33.0); MEAN CORPUSCULAR HGB CONC 33.7 g/dL (32.0-36.0); MEAN CORPUSCULAR VOLUME 78.6 fL (79-99); RED BLOOD CELL COUNT(AUTO) 3.78 MIL/uL (4.50-6.20); RED CELL DISTRIBUTION WIDTH 14.9 % (11.0-15.5); WHITE BLOOD COUNT (AUTO) 10.2 K/uL (4.8-10.8)
[2023-09-03 10:29] LABS: CREATININE 1.9 mg/dL (0.5-1.3)
[2023-09-03] MEDS: IPRATROPIUM 0.5 MG/2.5 ML INH IH SCH (18:39)
[2023-09-03] MEDS: INSULIN HUMULIN R 100 UNIT/ML 3ML SQ ONE (23:38)
[2023-09-04] VITALS (16 sets, daily range): BP systolic 113–133; BP diastolic 57–80; PULSE 60–88; RESP 18–22; O2SAT 90–100
[2023-09-04 04:13] LABS: BILIRUBIN,TOTAL 1.2 mg/dL (0.2-1.0); MAGNESIUM 2.4 mg/dL (1.80-2.40); POTASSIUM 4.2 mmol/L (3.5-5.1); TOTAL PROTEIN, SERUM 6.5 g/dL (6.0-8.3)
[2023-09-04 04:15] LABS: HEMATOCRIT 30.2 % (42-54); MEAN CORPUSCULAR HEMOGLOBIN 26.4 pg (27.0-33.0); MEAN CORPUSCULAR HGB CONC 32.8 g/dL (32.0-36.0); MEAN CORPUSCULAR VOLUME 80.5 fL (79-99); RED BLOOD CELL COUNT(AUTO) 3.75 MIL/uL (4.50-6.20); RED CELL DISTRIBUTION WIDTH 15.2 % (11.0-15.5); WHITE BLOOD COUNT (AUTO) 13.9 K/uL (4.8-10.8)
[2023-09-04] MEDS: LEVOTHYROXINE 100 MCG TABLET PO SCH (05:56)
[2023-09-04] MEDS ORDERED: FUROSEMIDE 40MG VIAL IV SCH (07:00)
[2023-09-04] MEDS: INSULIN HUMULIN R 100 UNIT/ML 3ML SQ SCH (12:23)
[2023-09-04] MEDS: CEFEPIME HCL 2 GM VIAL IVPB SCH (15:03)
[2023-09-04] MEDS ORDERED: VANCOMYCIN 1.5 GM/250 ML BAG 250 ML IV SCH (16:00)
[2023-09-05] VITALS (18 sets, daily range): BP systolic 99–175; BP diastolic 48–96; PULSE 58–86; RESP 15–20; O2SAT 95–98
[2023-09-05] MEDS: INSULIN HUMULIN R 100 UNIT/ML 3ML SQ SCH ×3 (06:11→17:11)
[2023-09-05] MEDS: VANCOMYCIN 1.5 GM/250 ML BAG 250 ML IV SCH (17:01)
[2023-09-06] VITALS (11 sets, daily range): BP systolic 139–154; BP diastolic 70–96; PULSE 54–76; RESP 12–18; O2SAT 95–100
[2023-09-06] MEDS: LEVOFLOXACIN 750 MG TABLET PO SCH (09:28)
[2023-09-08] MEDS ORDERED: LEVOTHYROXINE 150 MCG TABLET PO SCH (06:30)
[2023-09-11] MEDS ORDERED: LEVOTHYROXINE 150 MCG TABLET PO SCH (06:30)
== END 2023-09-06 16:10 | DRG 871 ==
LOC: EDH 13:55 → EDHIP 19:34 → 2AH 22:19
PROVIDERS: ADMIT Internal Medicine; ATTEND Internal Medicine
PROC: 5A09357 Assistance with Respiratory Ventilation, Less than 24 Consecutive Hours, Continuous Positive Airway Pressure (ICD-10-PCS; principal; 2023-08-29)
PROC: 5A09357 Assistance with Respiratory Ventilation, Less than 24 Consecutive Hours, Continuous Positive Airway Pressure (ICD-10-PCS; 2023-08-30)
PROC: 5A09357 Assistance with Respiratory Ventilation, Less than 24 Consecutive Hours, Continuous Positive Airway Pressure (ICD-10-PCS; 2023-08-31)
PROC: 5A09357 Assistance with Respiratory Ventilation, Less than 24 Consecutive Hours, Continuous Positive Airway Pressure (ICD-10-PCS; 2023-09-01)
PROC: 5A09357 Assistance with Respiratory Ventilation, Less than 24 Consecutive Hours, Continuous Positive Airway Pressure (ICD-10-PCS; 2023-09-02)
PROC: 5A09357 Assistance with Respiratory Ventilation, Less than 24 Consecutive Hours, Continuous Positive Airway Pressure (ICD-10-PCS; 2023-09-04)
PROC: 5A09357 Assistance with Respiratory Ventilation, Less than 24 Consecutive Hours, Continuous Positive Airway Pressure (ICD-10-PCS; 2023-09-05)
PROC: 5A09357 Assistance with Respiratory Ventilation, Less than 24 Consecutive Hours, Continuous Positive Airway Pressure (ICD-10-PCS; 2023-09-06)
DX: A41.9 Sepsis, unspecified organism (principal); I50.43 Acute on chronic combined systolic (congestive) and diastolic (congestive) heart failure; J18.9 Pneumonia, unspecified organism; J96.01 Acute respiratory failure with hypoxia; I13.0 Hypertensive heart and chronic kidney disease with heart failure and stage 1 through stage 4 chronic kidney disease, or unspecified chronic kidney disease; Z68.42 Body mass index [BMI] 45.0-49.9, adult; E66.2 Morbid (severe) obesity with alveolar hypoventilation; E87.0 Hyperosmolality and hypernatremia; N17.9 Acute kidney failure, unspecified; E78.00 Pure hypercholesterolemia, unspecified; Z20.822 Contact with and (suspected) exposure to COVID-19; E11.22 Type 2 diabetes mellitus with diabetic chronic kidney disease; D64.9 Anemia, unspecified; E11.65 Type 2 diabetes mellitus with hyperglycemia; E83.42 Hypomagnesemia; E83.51 Hypocalcemia; E87.6 Hypokalemia; E89.0 Postprocedural hypothyroidism; F41.9 Anxiety disorder, unspecified; R29.6 Repeated falls; N18.30 Chronic kidney disease, stage 3 unspecified; T38.0X5A Adverse effect of glucocorticoids and synthetic analogues, initial encounter; Y92.89 Other specified places as the place of occurrence of the external cause; Z79.4 Long term (current) use of insulin; Z79.82 Long term (current) use of aspirin; Z87.01 Personal history of pneumonia (recurrent); Z87.891 Personal history of nicotine dependence
CPT/HCPCS: 36415; 36600; 71045; 71250; 74018; 78579; 80048; 80053; 80202; 82435; 82803; 82947; 82948; 83605; 83735; 83880; 84100; 84132; 84145; 84295; 84439; 84443; 84484; 85018; 85025; 85027; 85651; 87040; 87071; 87205; 87426; 87804; 93005; 93306; 94640; 94660; 94664; 94667; 94668; 94760; 96365; 99291; A9558; G0378; J0456; J0692; J0696; J1650; J1815; J1940; J2060; J3475; J3490; J7608; J3370

== ENCOUNTER → 2023-11-08 | Outpatient (CLI) | payer MEDICARE ==
[2023-11-08] MEDS: REGADENOSON 0.4 MG/5 ML PF SYG IVP ONE (14:55)
== END | disposition home or self-care (01) ==
LOC: SHCH 08:07
PROVIDERS: ATTEND Internal Medicine Cardiovascular Disease
DX: I48.91 Unspecified atrial fibrillation (principal); I51.7 Cardiomegaly; I20.9 Angina pectoris, unspecified; R07.9 Chest pain, unspecified
CPT/HCPCS: 78452; 93017; J2785; A9500 ×2

== ENCOUNTER → 2024-06-16 | Outpatient (CLI) | payer MEDICARE ==
--- NOTE | 2024-06-16 15:58 | HMCIMG ---
Exam Type: MR SHOULDER LEFT WO Clinical Information: M75.02 Adhesive capsulitis of left shoulder Comparison: None Technique: The examination is done with sagittal T1 and inversion recovery sequences, axial GRE sequence and coronal inversion recovery, proton density and T2 weighted [id number] sequences. FINDINGS: There is a full-thickness tear of the rotator cuff tendon supraspinatus component with anteroposterior of 11 mm and with retraction of 16 mm. Associated cystic degenerative changes of the rotator cuff tendon humeral head insertion are seen. There is fluid within the subacromial subdeltoid bursa complex. The acromioclavicular joint is hypertrophic. This may cause impingement of the rotator cuff tendon. The coracoclavicular and coracohumeral ligaments are intact. The biceps anchor is well seen, without significant tears. The biceps tendon runs in the bicipital groove without significant high signal intensity to suggest sprain. No displacement is seen from the groove itself. The structures of the labrum are intact; specifically, there is no evidence of SLAP tear. No significant abnormalities of the posterior, inferior, or inferior labral structures are seen either. No paralabral cysts are seen. The superior, middle, and inferior glenohumeral ligaments are intact. Glenohumeral joint cartilage is preserved. There is no evidence of chondromalacia. No loose intra-articular chondroid bodies are identified. The osseous structures of the shoulder joint to include the visualized segments of humeral head, neck, and shaft as well as the glenoid bone itself, the acromion, the coracoid, portions of the scapula and the distal portion of the clavicle are intact. The supraglenoid notch is clear without evidence of space occupying lesions or tumor. The structures of the joint capsule are preserved. The limited examination of the deltoid and the limited visualized portions of the pectoralis major are intact. IMPRESSION: 1. HYPERTROPHIC ACROMIOCLAVICULAR JOINT, WHICH MAY CAUSE IMPINGEMENT OF THE ROTATOR CUFF TENDON. 2. ROTATOR CUFF TENDON TEAR.
== END | disposition home or self-care (01) ==
LOC: RAH 13:06
PROVIDERS: ATTEND Student in an Organized Health Care Education/Training Program
DX: S46.012A Strain of muscle(s) and tendon(s) of the rotator cuff of left shoulder, initial encounter (principal); M19.012 Primary osteoarthritis, left shoulder; M25.812 Other specified joint disorders, left shoulder; M75.02 Adhesive capsulitis of left shoulder; X58.XXXA Exposure to other specified factors, initial encounter; Y93.89 Activity, other specified; Y92.89 Other specified places as the place of occurrence of the external cause; Y99.8 Other external cause status
CPT/HCPCS: 73221